=== PATIENT | male | born 1955 | race Caucasian/White ===

== ENCOUNTER → 2020-06-28 09:46 | Outpatient (BNVA) | payer MEDICARE, MEDICAID, SELFPAY | PROVIDERS: Family Provider Family Medicine; PCP Family Medicine; Visit Provider Family Medicine | DX: F41.1 Generalized anxiety disorder (principal); Z13.6 Encounter for screening for cardiovascular disorders; R35.1 Nocturia; R03.0 Elevated blood-pressure reading, without diagnosis of hypertension; F17.219 Nicotine dependence, cigarettes, with unspecified nicotine-induced disorders | CPT/HCPCS: 80053; 80061; 84153; 85025 ==

== ENCOUNTER 2020-07-06 08:17 | Emergency (ER) | payer MEDICARE, MEDICAID, SELFPAY ==
[2020-07-06 08:22] VITALS: BMI 31.4
[2020-07-06 08:25] VITALS: BP 162/110; PULSE 89; RESP 18; TEMP 36.8; O2SAT 96
--- NOTE | 2020-07-06 08:41 | W.ED.PSYCH ---
HPI - Psych General: Chief Complaint: Psychiatric Symptoms Stated Complaint: SI Time Seen by Provider: 07/06/20 08:24 History of Present Illness: HPI Narrative: Patient presents here today with a history of generalized anxiety disorder and has been feeling suicidal for over the last year and finally reached to the point where he is reaching out for help. Does have a appointment scheduled with mental health but he feels like his not soon enough and he just wants to today he started a multiple ways to hurt himself but he is not ready to act upon those. He just feels like the world is caving in on him and he has no reason to live. Just recently started on medications and not take them regularly but he said they are not helping MD complaint: suicidal ideation and feels depressed Onset (ago): year(s) Duration: constant and getting worse History of same: Yes Relieving factors: none Context: new medication(s) Associated psychiatric symptoms: depression and suicidal ideation Associated symptoms: Reports no associated symptoms, depression and suicidal ideation Treatments prior to arrival: none If self harm: admits thoughts of self harm Review of Systems Const: Denies: fever(s), chills or body aches Eyes: Denies: change in vision or blurry vision ENMT: Denies: throat pain or nasal congestion Card: Denies: chest pain or dyspnea on exertion Resp: Denies: dyspnea, productive cough or non-productive cough GI: Denies: abdominal pain, nausea or vomiting : Denies: difficulty urinating Musc: Denies: extremity pain Skin/Breast: Denies: rash Neuro: Denies: headache(s) Psych: Reports: anxiety, depression and suicidal ideation Naveen/Lymph: Denies: easy bruising PFS ED PFSH: Medical History (Updated 06/28/20 @ 10:01 by Megan Tomas DO) MYRTLE (generalized anxiety disorder) Surgical History History of cholecystectomy Family History Other Alcohol abuse Social History Smoking and tobacco status: current every day smoker cigarettes Packs smoked per day: 1 Alcohol intake: former Former alcohol use details: 2019 Physical Exam Const: COMMON NORMALS: no acute distress, average body habitus and patient oriented x3 HENMT: COMMON NORMALS: normocephalic HEAD & SCALP: normal to inspection and normocephalic FACE & SINUS: normal facial exam Eye: COMMON NORMALS: conjunctivae normal GENERAL EYE: appearance normal, both eyes and all related structures CONJUNCTIVA: Yes conjunctivae normal Neck/C-Spine: COMMON NORMALS: no JVD Chest: COMMONS NORMALS: normal inspection of the chest Resp: COMMON NORMALS: normal respiratory effort and clear to auscultation bilaterally AUSCULTATION: clear to auscultation bilaterally Cardio: COMMON NORMALS: no JVD, regular rate and regular rhythm RATE: regular rate RHYTHM: regular rhythm GI: COMMON NORMALS: Normal to inspection, nondistended, normoactive bowel sounds present Extremity: COMMON NORMALS: normal to inspection and full ROM Neuro: COMMON NORMALS: patient oriented x3 MDM - Psych MDM Narrative: Medical decision making narrative: I spoke with Dr. Hui who agrees accept the patient at [facility] Lab Data: Labs: Lab Results 07/06/20 07/06/20 07/06/20 Range/Units 08:50 08:50 09:08 WBC 12.7 H (4.0-10.0) 10^3/ uL RBC 5.59 H (4.1-5.3) 10^6/u L Hgb 17.9 H (11.7-16.6) g/dL Hct 51.2 (42.0-52.0) % MCV 91.6 (80-94) fL MCH 32.0 (28.0-34.0) pg MCHC 35.0 (30.0-36.0) g/dL RDW 12.7 (12.1-15.1) % Plt Count 284 (130-400) 10^3/c mm MPV 10.8 H (7.4-10.4) fL Neut % (Auto) 76.9 % Lymph % (Auto) 16.8 % Alger % (Auto) 5.0 % Eos % (Auto) 0.6 % Baso % (Auto) 0.3 % Neut # (Auto) 9.73 H (1.8-7.7) 10^3/u L Lymph # (Auto) 2.1 (0.8-4.8) 10^3/u L Alger # (Auto) 0.6 (0.2-0.9) 10^3/u L Eos # (Auto) 0.1 (0.0-0.8) 10^3/u L Baso # (Auto) 0.0 (0.0-0.1) 10^3/u L Nucleated RBC % (a uto) 0 % Nucleated RBCs # 0.0 /100WBC Sodium (136-145) mmol/L Potassium (3.5-5.1) mmol/L Chloride (98-107) mmol/L Carbon Dioxide (22-29) mmol/L Anion Gap (5-19) BUN (8-23) mg/dL Creatinine (0.7-1.2) mg/dL GFR Calculation (90-130) mL/min Glucose (65-115) mg/dL Calculated Osmolal ity (285-295) mOsm/k g Calcium (8.5-10.5) mg/dL Urine Color Yellow (Yellow) Urine Appearance Clear (CLEAR) Urine pH 5.0 (5-7) Ur Specific Gravit y 1.020 (1.005-1.030) Urine Protein Neg (Negative) Urine Glucose (UA) Norm (Normal) Urine Ketones Negative (Negative) Urine Blood Neg (Negative) Urine Nitrate Negative (Negative) Urine Bilirubin Neg (NEGATIVE) Urine Urobilinogen Norm (Negative) mg/dL Ur Leukocyte Arielle ase Negative (Negative) Salicylates (3-10) mg/dL Urine Opiates Scre en Negative (Negative) ng/mL Acetaminophen (10-30) ug/mL Ur Barbiturates Sc reen Negative (Negative) ng/mL Ur Phencyclidine S crn Negative (Negative) ng/mL Ur Amphetamines Sc reen Negative (Negative) ng/mL U Benzodiazepines Scrn Negative (Negative) ng/mL Urine Cocaine Scre en Negative (Negative) ng/mL U Marijuana (THC) Screen Negative (Negative) ng/mL 07/06/20 Range/Units 09:08 WBC (4.0-10.0) 10^3/ uL RBC (4.1-5.3) 10^6/u L Hgb (11.7-16.6) g/dL Hct (42.0-52.0) % MCV (80-94) fL MCH (28.0-34.0) pg MCHC (30.0-36.0) g/dL RDW (12.1-15.1) % Plt Count (130-400) 10^3/c mm MPV (7.4-10.4) fL Neut % (Auto) % Lymph % (Auto) % Alger % (Auto) % Eos % (Auto) % Baso % (Auto) % Neut # (Auto) (1.8-7.7) 10^3/u L Lymph # (Auto) (0.8-4.8) 10^3/u L Alger # (Auto) (0.2-0.9) 10^3/u L Eos # (Auto) (0.0-0.8) 10^3/u L Baso # (Auto) (0.0-0.1) 10^3/u L Nucleated RBC % (a uto) % Nucleated RBCs # /100WBC Sodium 136 (136-145) mmol/L Potassium 3.8 (3.5-5.1) mmol/L Chloride 104 (98-107) mmol/L Carbon Dioxide 23 (22-29) mmol/L Anion Gap 12.8 (5-19) BUN 12 (8-23) mg/dL Creatinine 1.1 (0.7-1.2) mg/dL GFR Calculation 67.0 L (90-130) mL/min Glucose 112 (65-115) mg/dL Calculated Osmolal ity 279 L (285-295) mOsm/k g Calcium 9.4 (8.5-10.5) mg/dL Urine Color (Yellow) Urine Appearance (CLEAR) Urine pH (5-7) Ur Specific Gravit y (1.005-1.030) Urine Protein (Negative) Urine Glucose (UA) (Normal) Urine Ketones (Negative) Urine Blood (Negative) Urine Nitrate (Negative) Urine Bilirubin (NEGATIVE) Urine Urobilinogen (Negative) mg/dL Ur Leukocyte Arielle ase (Negative) Salicylates < 0.3 L (3-10) mg/dL Urine Opiates Scre en (Negative) ng/mL Acetaminophen < 5.0 L (10-30) ug/mL Ur Barbiturates Sc reen (Negative) ng/mL Ur Phencyclidine S crn (Negative) ng/mL Ur Amphetamines Sc reen (Negative) ng/mL U Benzodiazepines Scrn (Negative) ng/mL Urine Cocaine Scre en (Negative) ng/mL U Marijuana (THC) Screen (Negative) ng/mL Discharge Plan Discharge Prescriptions: No Action citalopram 40 mg tablet 40 mg PO DAILY Qty: 30 RF: 0 Benadryl 25 mg Capsule 50 mg PO BEDTIME PRN (Reason: Sleep) RF: 0 clonazepam 1 mg tablet 1 mg PO BEDTIME PRN (Reason: insomnia) RF: 0 Coding Level of Care Code ED Capacity Management Specialist for Chg Fwd Exam Comprehensive
[2020-07-06] MEDS: LORazepam 1 mg Tablet PO (09:00)
[2020-07-06] MEDS: lisinopril 10 mg Tablet PO (09:00)
[2020-07-06 09:16] LABS: Basophils % 0.3 %; Eosinophils # 0.1 10^3/uL (0.0-0.8); Eosinophils % 0.6 %; Hematocrit 51.2 % (42.0-52.0); Hemoglobin 17.9 g/dL (11.7-16.6); Lymphocytes # 2.1 10^3/uL (0.8-4.8); Lymphocytes % 16.8 %; Mean Corpuscular Volume 91.6 fL (80-94); Mean Platelet Volume 10.8 fL (7.4-10.4); Monocytes # 0.6 10^3/uL (0.2-0.9); Neutrophils # 9.73 10^3/uL (1.8-7.7); Neutrophils % 76.9 %; Nucleated Red Blood Cells % 0 %; Platelet Count 284 10^3/cmm (130-400); Red Blood Count 5.59 10^6/uL (4.1-5.3); Red Cell Distribution Width 12.7 % (12.1-15.1); White Blood Count 12.7 10^3/uL (4.0-10.0)
[2020-07-06 09:17] LABS: Add Urine Microscopic? NO
[2020-07-06 09:23] LABS: Bilirubin Urine Neg (NEGATIVE); Blood Urine Neg (Negative); Glucose Urine UA Norm (Normal); Ketones Urine Negative (Negative); Leukocyte Esterase Urine Negative (Negative); Nitrate Urine Negative (Negative); Protein Urine Neg (Negative); Urine Appearance Clear (CLEAR); Urine Color Yellow (Yellow); Urobilinogen Urine Norm (Negative)
[2020-07-06 09:31] LABS: Amphetamines Screen Urine Negative (Negative); Barbiturates Screen Urine Negative (Negative); Benzodiazepines Screen Urine Negative (Negative); Cocaine Screen Urine Negative (Negative); Opiate Screen Urine Negative (Negative); PCP Screen Urine Negative (Negative); THC Screen Urine Negative (Negative)
[2020-07-06 09:40] LABS: Anion Gap 12.8 (5-19); Blood Urea Nitrogen 12 mg/dL (8-23); Calcium 9.4 mg/dL (8.5-10.5); Carbon Dioxide 23 mmol/L (22-29); Chloride 104 mmol/L (98-107); Glucose 112 mg/dL (65-115); Osmolality Calculated 279 mOsm/kg (285-295); Potassium 3.8 mmol/L (3.5-5.1); Sodium 136 mmol/L (136-145)
[2020-07-06 09:41] LABS: Acetaminophen < 5.0 ug/mL (10-30); Salicylate < 0.3 mg/dL (3-10)
[2020-07-06 13:09] VITALS: RESP 18
--- NOTE | 2020-07-06 13:59 | PC.NURSE ---
Alis called to talk to patient directly at 1400
[2020-07-06 15:03] VITALS: BP 114/75; PULSE 81; RESP 18; O2SAT 95
[2020-07-06] MEDS: LORazepam 1 mg Tablet 0.5 MG PO (15:40)
[2020-07-06] MEDS: diphenoxylate/atropine Tablet 1 TAB PO (15:40)
== END 2020-07-06 15:45 ==
PROVIDERS: Emergency Provider Nurse Practitioner Family; PCP Family Medicine
DX: F17.210 Nicotine dependence, cigarettes, uncomplicated (principal)
CPT/HCPCS: 12345; 36415; 80048; 80306; 80307; 81003; 85025; 99284; 99285

== ENCOUNTER → 2020-08-05 09:45 | Outpatient (BNVA) | payer MEDICARE, MEDICAID, SELFPAY | PROVIDERS: PCP Family Medicine; Visit Provider Psychiatry & Neurology Psychiatry | DX: F41.1 Generalized anxiety disorder (principal); F42.2 Mixed obsessional thoughts and acts; F33.0 Major depressive disorder, recurrent, mild | CPT/HCPCS: 90792 ==

== ENCOUNTER → 2020-08-19 08:29 | Outpatient (BNVA) | payer MEDICARE, MEDICAID, SELFPAY | PROVIDERS: PCP Family Medicine; Visit Provider Psychiatry & Neurology Psychiatry | DX: F33.0 Major depressive disorder, recurrent, mild (principal); F42.2 Mixed obsessional thoughts and acts; F41.1 Generalized anxiety disorder | CPT/HCPCS: 99214 ==

== ENCOUNTER → 2020-08-30 08:38 | Outpatient (BNVA) | payer MEDICARE, MEDICAID, SELFPAY | PROVIDERS: PCP Family Medicine; Visit Provider Psychiatry & Neurology Psychiatry | DX: F33.0 Major depressive disorder, recurrent, mild (principal); F42.2 Mixed obsessional thoughts and acts; F41.1 Generalized anxiety disorder | CPT/HCPCS: 99213 ==

== ENCOUNTER → 2020-10-10 11:30 | Outpatient (BNVA) | payer MEDICARE, MEDICAID, SELFPAY | PROVIDERS: PCP Family Medicine; Visit Provider Psychiatry & Neurology Psychiatry | DX: F33.0 Major depressive disorder, recurrent, mild (principal); F42.2 Mixed obsessional thoughts and acts; F41.1 Generalized anxiety disorder; G31.84 Mild cognitive impairment of uncertain or unknown etiology | CPT/HCPCS: 99214 ==

== ENCOUNTER → 2020-12-06 08:02 | Outpatient (BNVA) | payer MEDICARE, MEDICAID, SELFPAY | PROVIDERS: PCP Family Medicine; Visit Provider Psychiatry & Neurology Psychiatry | DX: F33.0 Major depressive disorder, recurrent, mild (principal); F42.2 Mixed obsessional thoughts and acts; F41.1 Generalized anxiety disorder; G31.84 Mild cognitive impairment of uncertain or unknown etiology | CPT/HCPCS: 99214 ==

== ENCOUNTER → 2021-04-11 11:06 | Outpatient (BNVA) | payer MEDICARE, MEDICAID, SELFPAY | PROVIDERS: PCP Family Medicine; Visit Provider Psychiatry & Neurology Psychiatry | DX: F41.1 Generalized anxiety disorder (principal); F33.0 Major depressive disorder, recurrent, mild; F42.2 Mixed obsessional thoughts and acts; G31.84 Mild cognitive impairment of uncertain or unknown etiology | CPT/HCPCS: 99214 ==

== ENCOUNTER → 2021-05-25 09:05 | Outpatient (BNVA) | payer MEDICARE, MEDICAID, SELFPAY | PROVIDERS: PCP Family Medicine; Visit Provider Family Medicine | DX: I10 Essential (primary) hypertension (principal); R35.1 Nocturia | CPT/HCPCS: 80053; 80061; 82043; 84153; 85025 ==

== ENCOUNTER → 2021-06-02 10:13 | Outpatient (BNVA) | payer MEDICARE, MEDICAID, SELFPAY | PROVIDERS: PCP Family Medicine; Visit Provider Psychiatry & Neurology Psychiatry | DX: F41.1 Generalized anxiety disorder (principal); F33.0 Major depressive disorder, recurrent, mild; F42.2 Mixed obsessional thoughts and acts; G31.84 Mild cognitive impairment of uncertain or unknown etiology | CPT/HCPCS: 99214 ==

== ENCOUNTER → 2021-08-31 10:21 | Outpatient (BNVA) | payer MEDICARE, MEDICAID, SELFPAY | PROVIDERS: PCP Family Medicine; Visit Provider Psychiatry & Neurology Psychiatry | DX: F41.1 Generalized anxiety disorder (principal); F33.0 Major depressive disorder, recurrent, mild; F42.2 Mixed obsessional thoughts and acts; G31.84 Mild cognitive impairment of uncertain or unknown etiology | CPT/HCPCS: 99214 ==

== ENCOUNTER 2021-11-23 12:30 | Emergency (ER) | payer MEDICARE, MEDICAID, SELFPAY ==
[2021-11-23 12:41] VITALS: BP 183/79; PULSE 72; RESP 16; TEMP 36.7; O2SAT 95
[2021-11-23 13:26] LABS: Add Urine Microscopic? NO; Charge for UA Resulting for Rev
[2021-11-23 13:31] LABS: Bilirubin Urine Neg (Negative); Blood Urine Neg (Negative); Glucose Urine UA Norm (Normal); Ketones Urine Negative (Negative); Leukocyte Esterase Urine Negative (Negative); Nitrate Urine Negative (Negative); Protein Urine Neg (Negative); Specific Gravity, Urine 1.015 (1.005-1.030); Urine Appearance Clear (CLEAR); Urine Color Yellow (Yellow); Urobilinogen Urine Norm (Negative); pH Urine 5 (5-7)
[2021-11-23 13:38] LABS: Basophils % 0.2 %; Eosinophils # 0.2 10^3/uL (0.0-0.8); Eosinophils % 2.2 %; Hematocrit 47.2 % (42.0-52.0); Hemoglobin 15.9 g/dL (11.7-16.6); Lymphocytes # 2.3 10^3/uL (0.8-4.8); Mean Corpuscular HGB Conc 33.7 g/dL (30.0-36.0); Mean Corpuscular Hemoglobin 31.1 pg (28.0-34.0); Mean Corpuscular Volume 92.4 fl (80-94); Mean Platelet Volume 10.9 fL (7.4-10.4); Monocytes # 0.6 10^3/uL (0.2-0.9); Monocytes % 7.3 %; Neutrophils # 5.05 10^3/uL (1.8-7.7); Neutrophils % 62.2 %; Nucleated Red Blood Cells % 0 %; Platelet Count 262 10^3/cmm (130-400); Red Blood Count 5.11 10^6/uL (4.1-5.3); White Blood Count 8.1 10^3/uL (4.0-10.0)
--- NOTE | 2021-11-23 14:07 | CT_ITS ---
WS: [id number] CT HEAD TECHNIQUE: Noncontrast CT of the head obtained from the skullbase to the vertex. CLINICAL INFORMATION: confusion COMPARISON: None. DLP: 1017.[address] scans at [facility] use at least one of these dose optimization techniques: automated e xposure control; mA and/or kV adjustment per patient size (includes targeted exams where dose is matc hed to clinical indication); or iterative reconstruction. FINDINGS: No evidence of intracranial hemorrhage or mass effect. Ventricular system and basal cisterns are padilla nt. Moderate small vessel changes with moderate parenchymal volume loss. Encephalomalacia left fronta l lobe likely due to prior infarct or trauma. No extra-axial fluid collections. No evidence of mass o r mass effect. Retention cyst right maxillary sinus. Mastoid air cells are well aerated. Intracranial vascular calci fication. CT/CT head wo con* [id number] IMPRESSION: 1. No evidence of intracranial hemorrhage or mass effect. 2. Encephalomalacia in the left frontal lobe likely due to prior trauma or inf arct. 3. Moderate small vessel changes with moderate parenchymal volume loss. 4. No acute intracranial findings.
--- NOTE | 2021-11-23 14:08 | ECG_ITS ---
[facility] Test Date: 2021-11-23 Pat Name: Shon Scanlon Department: Room: Gender: Male [employer]: : [id number] Requested By: Zohreh Hernandez Order Number: [id number] Johana MD: Yan Trotter M.D. Measurements Intervals Douglas Rate: 66 P: 39 CT: 156 QRS: -2 QRSD: 101 T: 40 QT: 378 QTc: 397 Interpretive Statements SINUS RHYTHM SEPTAL MYOCARDIAL INFARCTION , PROBABLY OLD [40+ ms Q WAVE IN V1/V2] No previous ECG available for comparison Electronically Signed On 11-23-2021 21:59:38 REHABILITATION PSYCHOLOGIST by Yan Trotter M.D. [email or web address] [email or web address] Design [email or web address]/[id number] f
--- NOTE | 2021-11-23 14:16 | ED_ITS ---
HPI - General Adult General: Chief complaint: General Medical Stated complaint: MEDICATION RXN, WEAKNESS Time Seen by Provider: 11/23/21 12:47 History of Present Illness: HPI narrative: Patient is a 66-year-old male with a history of severe anxiety requiring benzodiazepine presenting to the emergency room with complaints of increased confusion, mild slurring of speech, lightheadedness since Saturday. Patient tells me that he ran out of Ativan on Saturday and started taking diazepam since then. Since starting taking the diazepam, patient says that he has had gait instability asked to grab onto things to walk at home.?, Patient noticed mild intermittent slurring of speech. Denies any focal weakness, double vision, diplopia, facial droop, aphasia or difficulty with speech. Denies any associate chest pain, shortness breath, palpitation, lightheadedness. Onset: 3 days ago Duration:3 days Location:home Severity:mild Review of Systems Narrative: Constitutional: No fever, no chills. HEENT: No vision changes CV: No chest pain, no palpitations PULM: no cough, no dyspnea. GI: No abdominal pain, no N/V/D. : No dysuria MSKEL: No muscle pain SKIN: No new rashes, no lesions. NEURO: No headache, no focal weakness. +confusion/light-headedness/gait instability HEME: No visible bruises PSYCH: Normal mood PFSH ED PFSH: Medical History (Updated 11/23/21 @ 14:14 by Zohreh Hernandez MD) MYRTLE (generalized anxiety disorder) Major depressive disorder Mild cognitive impairment OCD (obsessive compulsive disorder) Psychiatric care Surgical History History of cholecystectomy Family History Other Alcohol abuse Social History Smoking and tobacco status: current every day smoker cigarettes Packs smoked per day: 0.1 Years cigarettes smoked: 50 Quit status (tobacco): considering quitting Second hand smoke exposure: No Alcohol intake: former Former alcohol use details: QUIT 2020 Current gender identity: Male Physical Exam Narrative: EXAM NARRATIVE: Head: Atraumatic Eyes: PERRL, conjunctiva without injection ENT: Mucous membrane moist NECK: Supple, ROM intact LUNGS: LCTAB, no crackles/rhonchi CV: RRR ABDOMEN: Soft, nontender in all quadrants EXTREMITY: Normal ROM SKIN: No rash or erythema NEURO: Mental status? Awake, alert, and oriented to self, year, month, location, and situation.? Following simple axial and appendicular commands.? Has appropriate fund of knowledge, comprehension, and insight.? Able to recall and understands pertinent aspects of medical history and current treatment status.? ? Language? Speech is fluent without word-finding difficulties.? Intact naming, expression, unit receptionist, and repetition.? ? Cranial nerves? 2,3,4,6: PERRL, EOMI with no nystagmus. 5: Intact sensation to light touch, symmetric? 7: Smile symmetrical, no facial droop.? 8: Hearing grossly intact.? 9,10: Normal palate movement.? 11: Normal strength in trapezius bilaterally 12: Tongue protrudes midline.? ? Motor examination? Normal bulk & tone. Strength as follows (R/L): Delts (5/5), Biceps (5/5), Triceps (5/5), Wrist ext (5/5), hip flexors (5/5), plantarflexors (5/5), dorsiflexors (5/5). ? Sensation? Light Touch: Grossly intact and equal in upper and lower extremities bilaterally? Romberg: Negative.? Distal joint position sense intact ? Coordination? [id number]-finger movements intact without dysmetria or past-pointing.? Rapid fingertaps: preserved amplitude without decriment.? No tremor, myoclonus or truncal ataxia.? ? Gait/stance? Steady, normal narrow base gait with appropriate arm swing and turning.? Tandem gait without hesitation or loss of balance. PSYCH: Normal mood and affect Course Vital Signs: Vital signs: Vital Signs Temperature 98.1 F 11/23/21 12:41 Pulse Rate 67 11/23/21 17:38 Respiratory Rate 18 11/23/21 17:38 Blood Pressure 164/91 11/23/21 17:38 Pulse Oximetry 97 11/23/21 17:38 MDM - General Adult MDM Narrative: Medical decision making narrative: Patient is a 58-year-old male presenting to emergency room with complaints of lightheadedness, mild intermittent slurring speech, and gait instability after switching his medicine from Ativan to diazepam. On exam, patient is hemodynamically stable. Neuro exam is intact. Work-up, CBC, CMP, lipase, troponin, UA, CT Intervention observation, IVF On reassessment at 4:17 PM, patient continues to be neurologically intact. No signs of slurring of speech. Gait appears to be stable. At present time, I have discussed case with [facility] neurologist Dr Quiñonez who agrees that this is unlikely to be a stroke or TIA and thinks that likely medication side-effect. Dr. Quiñonez recommended close follow-up with our primary care provider for blood pressure adjustment as well as close follow-up with our neurologist for further evaluation of patient's neurological symptoms if they do not improve. Findings of L frontal lobe changes discussed with Dr. Quiñonez who agrees with close follow-up our neurologist. I do not suspect ACS since patient's troponin within normal limit EKG is nonischemic. Also did not have any symptoms of chest pain shortness of breath. I have given patient follow up with our hospice case manager to be seen by our utpatient neurologist Dr. Green. Patient aware of a call from our hospice case manager to schedule for appointment(s) and verbalizes understanding of the importance of following up. I have given patient strict return precaution for any signs of focal weakness, dysarthria, double vision, acute vision loss, slurring of speech, facial droop these may be signs of stroke. Patient is given strict return insturctions within 3 hours of onset of symptoms. Patient verbalizes everything discussed today. Disposition: Discharge. Patient counseled regarding diagnostic impression, treatment plan. Patient given ED strict return precautions to return for continuation, worsening, or development of new symptoms. Instructed to f/u w/ PCP regarding symptoms today. Patient verbalized understanding. Lab Data: Labs: Lab Results 11/23/21 11/23/21 11/23/21 13:18 13:32 13:32 WBC 8.1 10^3/uL 10^3/ uL (4.0-10.0) RBC 5.11 10^6/uL 10^6 /uL (4.1-5.3) Hgb 15.9 g/dL g/dL (11.7-16.6) Hct 47.2 % % (42.0-52.0) MCV 92.4 fl fl (80-94) MCH 31.1 pg pg (28.0-34.0) MCHC 33.7 g/dL g/dL (30.0-36.0) RDW 14.0 % % (12.1-15.1) Plt Count 262 10^3/cmm 10^3 /cmm (130-400) MPV 10.9 fL H fL (7.4-10.4) Neut % (Auto) 62.2 % % Lymph % (Auto) 28.0 % % Maury % (Auto) 7.3 % % Eos % (Auto) 2.2 % % Baso % (Auto) 0.2 % % Neut # (Auto) 5.05 10^3/uL 10^3 /uL (1.8-7.7) Lymph # (Auto) 2.3 10^3/uL 10^3/ uL (0.8-4.8) Maury # (Auto) 0.6 10^3/uL 10^3/ uL (0.2-0.9) Eos # (Auto) 0.2 10^3/uL 10^3/ uL (0.0-0.8) Baso # (Auto) 0.0 10^3/uL 10^3/ uL (0.0-0.1) Nucleated RBC % (a uto) 0 % % Nucleated RBCs # 0.0 /100WBC /100W BC Sodium Cancelled Potassium Cancelled Chloride Cancelled Carbon Dioxide Cancelled Anion Gap Cancelled BUN Cancelled Creatinine Cancelled GFR Calculation Cancelled Glucose Cancelled Calculated Osmolal ity Cancelled Calcium Cancelled Total Bilirubin AST ALT Alkaline Phosphata se Troponin T Baselin e Troponin T 120 Min douglas Delta Troponin T Total Protein Albumin Globulin Lipase Urine Color Yellow (Yellow) Urine Appearance Clear (CLEAR) Urine pH 5 (5-7) Ur Specific Gravit y 1.015 (1.005-1.030) Urine Protein Neg (Negative) Urine Glucose (UA) Norm (Normal) Urine Ketones Negative (Negative) Urine Blood Neg (Negative) Urine Nitrate Negative (Negative) Urine Bilirubin Neg (Negative) Urine Urobilinogen Norm mg/dL mg/dL (Negative) Ur Leukocyte Arielle ase Negative (Negative) 11/23/21 11/23/21 11/23/21 13:32 13:32 15:31 WBC RBC Hgb Hct MCV MCH MCHC RDW Plt Count MPV Neut % (Auto) Lymph % (Auto) Maury % (Auto) Eos % (Auto) Baso % (Auto) Neut # (Auto) Lymph # (Auto) Maury # (Auto) Eos # (Auto) Baso # (Auto) Nucleated RBC % (a uto) Nucleated RBCs # Sodium 140 mmol/L mmol/L (136-145) Potassium 4.7 mmol/L mmol/L (3.5-5.1) Chloride 106 mmol/L mmol/L (98-107) Carbon Dioxide 26 mmol/L mmol/L (22-29) Anion Gap 12.7 (5-19) BUN 11 mg/dL mg/dL (8-23) Creatinine 1.0 mg/dL mg/dL (0.7-1.2) GFR Calculation 74.3 mL/min L mL/ min (90-130) Glucose 88 mg/dL mg/dL (65-115) Calculated Osmolal ity 289 mOsm/kg mOsm/ kg (285-295) Calcium 8.8 mg/dL mg/dL (8.5-10.5) Total Bilirubin 0.3 mg/dL mg/dL (0.15-1.2) AST 15 U/L U/L (0-40) ALT 24 U/L U/L (0-41) Alkaline Phosphata se 70 IU/L IU/L (40-130) Troponin T Baselin e 13 ng/L ng/L (0-15) Troponin T 120 Min douglas 12.73 ng/L ng/L (0-15) Delta Troponin T -0.27 ABS# L ABS# (0-10) Total Protein 6.9 g/dL g/dL (6.6-8.7) Albumin 4.2 g/dL g/dL (3.5-5.2) Globulin 2.7 g/dL g/dL (1.3-4.6) Lipase 112 U/L H U/L (13-60) Urine Color Urine Appearance Urine pH Ur Specific Gravit y Urine Protein Urine Glucose (UA) Urine Ketones Urine Blood Urine Nitrate Urine Bilirubin Urine Urobilinogen Ur Leukocyte Arielle ase Imaging Data^: Other Imaging: Radiologist's impression: [employer] [address] [id number] Scan ReportSigned Patient: Shon Scanlon #: [id number]: 1955cct#:[id number]/Sex: 66 / MADM Date: 11/23/21Loc: ERRoom/Bed:Attending Dr: Ordering Provider/Ordering MD: Zohreh Hernandez MD Date of Service: 11/23/21 Procedure(s): CT head wo con* [id number] Accession Number(s): [id number] Report Number: [id number] WS: [id number] CT HEAD TECHNIQUE: Noncontrast CT of the head obtained from the skullbase to the vertex. CLINICAL INFORMATION: confusion COMPARISON: None. DLP: 1017.[address] scans at [facility] use at least one of these dose optimization techniques: automated exposure control; mA and/or kV adjustment per patient size (includes targeted exams where dose is matched to clinical indication); or iterative reconstruction. FINDINGS: No evidence of intracranial hemorrhage or mass effect. Ventricular system and basal cisterns are patent. Moderate small vessel changes with moderate parenchymal volume loss. Encephalomalacia left frontal lobe likely due to prior infarct or trauma. No extra-axial fluid collections. No evidence of mass or mass effect. Retention cyst right maxillary sinus. Mastoid air cells are well aerated. Intracranial vascular calcification. CT/CT head wo con* [id number] IMPRESSION: 1. No evidence of intracranial hemorrhage or mass effect. 2. Encephalomalacia in the left frontal lobe likely due to prior trauma or infarct. 3. Moderate small vessel changes with moderate parenchymal volume loss. 4. No acute intracranial findings. Dictated By:Anson White MDSigned By:Anson White MDSigned Date/Time:11/23/211457DD/ 54 Discharge Plan Discharge Patient Disposition: Home Clinical Impression: Confusion, Light headedness Condition: Stable Prescriptions: Discontinued diazepam 10 mg tablet 10 mg PO TID PRN (Reason: anxiety or sleep) 1 Days Qty: 90 RF: 3 No Action melatonin 10 mg capsule 10 mg PO BEDTIME RF: 0 aspirin 325 mg tablet 325 mg PO EVERY OTHER DAY RF: 0 lorazepam 0.5 mg tablet See Rx Instructions .ROUTE .COMPLEX RF: 0 lisinopril 10 mg tablet 10 mg PO QAM RF: 0 Discharge Orders: Discharge ED (Routine); Ordered 11/23/21 Ordered By: Zohreh Hernandez Referrals: Megan Tomas DO [Primary Care Provider] - Discharge Diet: Advance as tolerated Discharge Activity: Resume usual activity Patient Instructions: Near Syncope (ED) Activity Restrictions/Additional Instructions: Our hospice case manager will have you follow-up with Dr. Green in the next few days. You would be expected to have a phone call with our hospice case manager who will put you on the schedule. Come back to the emergency room if any weakness in your arms, for slurring of speech, double vision, blindness, difficulty speaking, worsening difficulties, or any new concerning complaints. Coding Level of Care Code ED Supervisor Body Assembly for Gary Elizabeth
[2021-11-23 14:28] LABS: Troponin(5th) Baseline 13 ng/L (0-15)
[2021-11-23 14:31] LABS: Anion Gap 12.7 (5-19); Blood Urea Nitrogen 11 mg/dL (8-23); Calcium 8.8 mg/dL (8.5-10.5); Carbon Dioxide 26 mmol/L (22-29); Chloride 106 mmol/L (98-107); Glomerular Filtration Rate 74.3 mL/min (90-130); Glucose 88 mg/dL (65-115); Osmolality Calculated 289 mOsm/kg (285-295); Potassium 4.7 mmol/L (3.5-5.1); Sodium 140 mmol/L (136-145)
[2021-11-23 14:44] LABS: Alanine Aminotransferase 24 U/L (0-41); Albumin Level 4.2 g/dL (3.5-5.2); Alkaline Phosphatase 70 IU/L (40-130); Aspartate Amino Transferase 15 U/L (0-40); Globulin 2.7 g/dL (1.3-4.6); Lipase 112 U/L (13-60); Total Bilirubin 0.3 mg/dL (0.15-1.2); Total Protein 6.9 g/dL (6.6-8.7)
[2021-11-23 15:56] LABS: Troponin 5 2HR 12.73 ng/L (0-15)
[2021-11-23 15:58] LABS: Troponin 5 2HR Delta -0.27 ABS# (0-10)
[2021-11-23 17:38] VITALS: BP 164/91; PULSE 67; RESP 18; O2SAT 97
--- NOTE | 2021-11-27 11:03 | DCPLANNER ---
Addendum entered by Shaila Lehman 12/06/21 08:05: Clinic contacted caseworker intake, informing caseworker intake that when clinic called patient to schedule a follow up appointment for patient that patient declined appt at this time, due to him feeling better. Original Note: insurance agency manager had message to schedule a follow up appointment for patient with Dr. Green. insurance agency manager emailed patients information to the neurology clinic. Patients information will be printed and reviewed. Clinic will call patient with appointment information.
== END 2021-11-23 17:39 | disposition home or self-care (01) ==
PROVIDERS: Emergency Provider Emergency Medicine; PCP Family Medicine
DX: R41.0 Disorientation, unspecified (principal); R42 Dizziness and giddiness; Z79.82 Long term (current) use of aspirin; F17.210 Nicotine dependence, cigarettes, uncomplicated
CPT/HCPCS: 70450; 80053; 81003; 83690; 84484; 85025; 93005; 99283

== ENCOUNTER → 2021-12-21 07:27 | Outpatient (BNVA) | payer MEDICARE, MEDICAID, SELFPAY | PROVIDERS: PCP Family Medicine; Visit Provider Psychiatry & Neurology Psychiatry | DX: F41.1 Generalized anxiety disorder (principal); F33.0 Major depressive disorder, recurrent, mild; F42.2 Mixed obsessional thoughts and acts; G31.84 Mild cognitive impairment of uncertain or unknown etiology | CPT/HCPCS: 99214 ==

== ENCOUNTER → 2021-12-22 12:08 | Outpatient (BNVA) | payer MEDICARE, MEDICAID, SELFPAY | PROVIDERS: PCP Family Medicine; Visit Provider Family Medicine | DX: I10 Essential (primary) hypertension (principal); R35.1 Nocturia; R23.8 Other skin changes | CPT/HCPCS: 80053; 80061; 82043; 84153; 85025 ==

== ENCOUNTER → 2022-03-20 09:00 | Outpatient (BNVA) | payer MEDICARE, MEDICAID, SELFPAY | PROVIDERS: PCP Family Medicine; Visit Provider Psychiatry & Neurology Psychiatry | DX: F41.1 Generalized anxiety disorder (principal); F33.0 Major depressive disorder, recurrent, mild; F42.2 Mixed obsessional thoughts and acts; G31.84 Mild cognitive impairment of uncertain or unknown etiology | CPT/HCPCS: 99214 ==

== ENCOUNTER → 2022-07-13 11:58 | Outpatient (BNVA) | payer MEDICARE, MEDICAID, SELFPAY | PROVIDERS: PCP Family Medicine; Visit Provider Family Medicine | DX: I10 Essential (primary) hypertension (principal); R35.1 Nocturia; R23.8 Other skin changes; R53.83 Other fatigue; K52.9 Noninfective gastroenteritis and colitis, unspecified | CPT/HCPCS: 80048; 84443 ==

== ENCOUNTER 2022-09-04 03:39 | Inpatient (IN) | payer MEDICARE, MEDICAID, SELFPAY ==
[2022-09-04] VITALS (14 sets, daily range): BP systolic 106–152; BP diastolic 54–77; PULSE 60–82; RESP 17–24; TEMP 35.7–39.3; O2SAT 87–98; BMI 30.8; BMI 30.7
--- NOTE | 2022-09-04 03:40 | W.ED.GENADLT ---
HPI - General Adult General: Chief complaint: General Medical Stated complaint: General Medical Time Seen by Provider: 09/04/22 03:40 History of Present Illness: Mr. Bah is a 66-year-old gentleman with history of hypertension, hyperlipidemia, nicotine dependence, psychiatric illness who presents to the emergency department for generalized illness. He reports approximately 1 week ago gradual onset of generalized malaise, weakness, fevers, chills, cough, shortness of breath. Intensity of symptoms has progressed and worsened to the point of becoming severe today. He was unable to get out of bed. He is now requiring supplemental oxygen and has EMS found him to be hypoxemic. Denies history of oxygen use at baseline. Overall intensity symptoms as mentioned is severe. No other specific changes in health, exacerbating, or alleviating factors identified. Onset (ago): week(s) Severity: severe Exacerbating factors: movement and other Associated symptoms: Reports cough, dyspnea, fevers/chills, malaise and short of breath Review of Systems General: Reports: 10 or more systems reviewed and unremarkable except in HPI and below Const: Reports: malaise Resp: Reports: dyspnea PFSH ED PFSH: Medical History MYRTLE (generalized anxiety disorder) Major depressive disorder Mild cognitive impairment OCD (obsessive compulsive disorder) Psychiatric care Surgical History History of cholecystectomy Family History Other Alcohol abuse Social History Smoking and tobacco status: current every day smoker cigarettes Packs smoked per day: 0.1 Years cigarettes smoked: 50 Quit status (tobacco): considering quitting Second hand smoke exposure: No Alcohol intake: former Former alcohol use details: QUIT 2020 Current gender identity: Male Physical Exam Const: COMMON NORMALS: alert GENERAL APPEARANCE: cooperative, well developed and ill appearing (somewhat) HENMT: COMMON NORMALS: normocephalic and atraumatic HEAD & SCALP: normocephalic and atraumatic THROAT: posterior oropharynx normal Eye: COMMON NORMALS: conjunctivae normal CONJUNCTIVA: Yes conjunctivae normal SCLERA: sclerae normal Neck/C-Spine: COMMON NORMALS: supple GENERAL: Yes trachea midline Resp: EFFORT & INSPECTION: Yes able to speak in complete sentences and Yes tachypneic AUSCULTATION: rhonchi Cardio: COMMON NORMALS: regular rate and regular rhythm RATE: regular rate RHYTHM: regular rhythm GI: COMMON NORMALS: Soft to palpation PALPATION: Yes Soft to palpation and No Tenderness to palpation present (GI) Extremity: GENERAL: Yes normal exam except as noted and No edema Neuro: COMMON NORMALS: moves all extremities SENSORIUM/ORIENTATION: Yes alert and No Orientation impaired Psych: COMMON NORMALS: mental status grossly normal and Normal thought process present THOUGHT PROCESS: Normal thought process present Course ED course: - Patient was seen and evaluated by me at bedside - Patient placed on cardiac monitors, IV access obtained - Initial evaluation notable for exam as above, somewhat ill-appearing. - Labs and xrays personally interpreted by me. EKG notable for sinus rhythm with no evidence of STEMI -Antipyretic given - Labs notable for mild leukopenia. Normal hemoglobin. Metabolic panel without significant derangement with the exception of borderline delta troponin at 2 hours and mild transaminitis. ABG notable for hypoxemia. COVID-positive. - Imaging notable for hazy opacities, no pneumothorax. - Upon serial reexamination after treatment the patient was only mildly improved, still requiring oxygen. - Based on patient history, evaluation, and testing as interpreted the most likely cause of the patient's condition is COVID-19 with acute hypoxic respiratory failure - The results of ED evaluation were discussed with the patient including plan for admission due to requirement for level of care not available if discharged to prevent significant worsening/deterioration. - Admitting service was contacted and Dr Davidson with the hospitalist service agreed to admit the patient - Patient was admitted without further deterioration or significant events. Note: Click bubbles or prepopulated covarrubias in note writing are used for assistance with data collection and billing and are inherently more limited than narrative and other text portions of this note. Please use narrative for additional clinical history and defer to narrative/free test for any case of contradictory information. If information appears in only free text or click bubble it should be considered present or absent as reported. Please contact note sign writer letterer or painter for clarifications of clinical information or contradictory information. MDM is a brief summary, contradictory or erroneous seeming information should be clarified and full note should be reviewed. Vital Signs: Vital signs: Vital Signs Temperature 97.6 F 09/07/22 08:00 Pulse Rate 60 10/14/22 16:36 Respiratory Rate 17 09/07/22 16:36 Blood Pressure 154/67 09/07/22 16:36 Pulse Oximetry 94 09/07/22 16:36 Oxygen Delivery Me thod 09/07/22 15:49 Oxygen Flow Rate 1 09/07/22 08:39 MDM - General Adult Medical Decision Making 66-year-old gentleman presenting with generalized illness found to have COVID-19 with new oxygen requirement. Admitted for further management. Medical Records I reviewed the patient's medical records. Lab Data I reviewed the patient's lab results. : 09/07/22 05:15 09/07/22 05:15 Radiology Impressions Chest X-Ray 09/04/22 03:45 IMPRESSION: Emphysematous change , interstitial prominence, and mild basilar airspace disease. Laboratory Results WBC 3.6 10^3/uL (4.0-10.0) L 09/04/22 03:52 RBC 4.90 10^6/uL (4.1-5.3) 09/04/22 03:52 Hgb 15.5 g/dL (11.7-16.6) 09/04/22 03:52 Hct 46.5 % (42.0-52.0) 09/04/22 03:52 MCV 94.9 fl (80-94) H 09/04/22 03:52 MCH 31.6 pg (28.0-34.0) 09/04/22 03:52 MCHC 33.3 g/dL (30.0-36.0) 09/04/22 03:52 RDW 14.0 % (12.1-15.1) 09/04/22 03:52 Plt Count 147 10^3/cmm (130-400) 09/04/22 03:52 MPV 10.7 fL (7.4-10.4) H 09/04/22 03:52 Neut % (Auto) 64.0 % 09/04/22 03:52 Lymph % (Auto) 22.6 % 09/04/22 03:52 Titus % (Auto) 12.8 % 09/04/22 03:52 Eos % (Auto) 0.0 % 09/04/22 03:52 Baso % (Auto) 0.3 % 09/04/22 03:52 Neut # (Auto) 2.29 10^3/uL (1.8-7.7) 09/04/22 03:52 Lymph # (Auto) 0.8 10^3/uL (0.8-4.8) 09/04/22 03:52 Titus # (Auto) 0.5 10^3/uL (0.2-0.9) 09/04/22 03:52 Eos # (Auto) 0.0 10^3/uL (0.0-0.8) 09/04/22 03:52 Baso # (Auto) 0.0 10^3/uL (0.0-0.1) 09/04/22 03:52 Nucleated RBC % (auto) 0 % 09/04/22 03:52 Nucleated RBCs # 0.0 /100WBC 09/04/22 03:52 Specimen Type Arterial 09/04/22 04:13 Sample Site Radial, left 09/04/22 04:13 ABG pH 7.43 (7.35-7.45) 09/04/22 04:13 ABG pCO2 36.7 mmHg (35-45) 09/04/22 04:13 ABG pO2 57.9 mmHg (80.0-100.0) L 09/04/22 04:13 ABG HCO3 24.1 mmol/L (22-26) 09/04/22 04:13 ABG Base Excess 0.1 mmol/L (-2.0-2.0) 09/04/22 04:13 Edi Test Pos 09/04/22 04:13 Hematocrit 48.6 % (42-52) 09/04/22 04:13 O2 Delivery Device Nc 09/04/22 04:13 O2 Liters/Min 2.0 % 09/04/22 04:13 Capture Manager ID [place] 09/04/22 04:13 Sodium 138 mmol/L (136-145) 09/04/22 03:52 Potassium 3.8 mmol/L (3.5-5.1) 09/04/22 03:52 Chloride 102 mmol/L (98-107) 09/04/22 03:52 Carbon Dioxide 22 mmol/L (22-29) 09/04/22 03:52 Anion Gap 17.8 (5-19) 09/04/22 03:52 BUN 16 mg/dL (8-23) 09/04/22 03:52 Creatinine 1.2 mg/dL (0.7-1.2) 09/04/22 03:52 GFR Calculation 60.2 mL/min (90-130) L 09/04/22 03:52 Glucose 94 mg/dL (65-115) 09/04/22 03:52 Calculated Osmolality 287 mOsm/kg (285-295) 09/04/22 03:52 Lactic Acid 1.8 mmol/L (0.5-2.2) 09/04/22 03:52 Calcium 8.8 mg/dL (8.5-10.5) 09/04/22 03:52 Total Bilirubin 0.4 mg/dL (0.15-1.2) 09/04/22 03:52 AST 78 U/L (0-40) H 09/04/22 03:52 ALT 64 U/L (0-41) H 09/04/22 03:52 Alkaline Phosphatase 54 U/L (40-130) 09/04/22 03:52 Troponin T Baseline 20 ng/L (0-15) H 09/04/22 03:52 Troponin T 120 Minute 26.06 ng/L (0-15) H 09/04/22 05:26 Delta Troponin T 6.06 ABS# (0-10) 09/04/22 05:26 C-Reactive Protein 56.3 mg/L (0.0-4.9) H 09/04/22 03:52 NT-Pro-B Natriuret Pep 104 pg/mL (0-125) 09/04/22 03:52 Total Protein 6.5 g/dL (6.6-8.7) L 09/04/22 03:52 Albumin 3.5 g/dL (3.5-5.2) 09/04/22 03:52 Globulin 3.0 g/dL (1.3-4.6) 09/04/22 03:52 Procalcitonin 0.32 ng/mL (0-0.5) 09/04/22 03:52 Coronavirus 229E (PCR) Not detected (NOT DETECT) 09/04/22 03:52 SARS-CoV-2 (PCR) Detected (NOT DETECT) A 09/04/22 03:52 Discharge Plan Discharge Patient Disposition: Placed in Observation Admit Provider: Cezar Davidson Clinical Impression: Suspected 2019 novel coronavirus infection, Acute respiratory failure with hypoxia, Leukopenia, Transaminitis Discharge Diet: Advance as tolerated Discharge Activity: Increase activity as tolerated Coding Level of Care Code ED Lost Charge Card Clerk for Gary Elizabeth
--- NOTE | 2022-09-04 03:45 | XRR_ITS ---
PROCEDURE INFORMATION: Exam: XR Chest Exam date and time: 09/04/2022 4:23 AM Age: 66 years old Clinical indication: Cough and fever; Patient HX: Cough with fever. General weakness. ; Additional info: SOB TECHNIQUE: Imaging protocol: Radiologic exam of the chest. Views: 1 view. COMPARISON: No relevant prior studies available. FINDINGS: Lungs: Emphysematous change , interstitial prominence, and mild basilar airspace disease. Accessory azygos lobe. Pleural spaces: No pleural effusion. Heart/Mediastinum: No cardiomegaly. Bones/joints: Osteopenia and degenerative change. XR/XR chest 1V portable [id number] IMPRESSION: Emphysematous change , interstitial prominence, and mild basilar airspace disease.
--- NOTE | 2022-09-04 03:51 | ECG_ITS ---
[facility] Test Date: 2022-09-04 Pat Name: Shon Scanlon Department: Room: Gender: Male Homicide Squad Commanding Officer: : 1955 Requested By: Dante Pitts Order Number: [id number] Johana MD: Yan Trotter M.D. Measurements Intervals [place] Rate: 79 P: 46 NC: 143 QRS: -23 QRSD: 98 T: 53 QT: 336 QTc: 386 Interpretive Statements SINUS RHYTHM SEPTAL MYOCARDIAL INFARCTION , PROBABLY OLD [40+ ms Q WAVE IN V1/V2] Compared to ECG 11/23/2021 14:24:54 No significant changes Electronically Signed On 09-05-2022 8:28:47 CDT by Yan Trotter M.D. [email or web address] medical centerMulti-AMP Engineering [facility].MiniBrake/store/OM/[id number]
[2022-09-04] MEDS: acetaminophen 500 mg Tablet 1000 MG PO (04:03)
[2022-09-04 04:05] LABS: Basophils % 0.3 %; Hematocrit 46.5 % (42.0-52.0); Hemoglobin 15.5 g/dL (11.7-16.6); Lymphocytes # 0.8 10^3/uL (0.8-4.8); Lymphocytes % 22.6 %; Mean Corpuscular HGB Conc 33.3 g/dL (30.0-36.0); Mean Corpuscular Hemoglobin 31.6 pg (28.0-34.0); Mean Corpuscular Volume 94.9 fl (80-94); Mean Platelet Volume 10.7 fL (7.4-10.4); Monocytes # 0.5 10^3/uL (0.2-0.9); Monocytes % 12.8 %; Neutrophils # 2.29 10^3/uL (1.8-7.7); Nucleated Red Blood Cells % 0 %; Platelet Count 147 10^3/cmm (130-400); White Blood Count 3.6 10^3/uL (4.0-10.0)
[2022-09-04 04:23] LABS: Lactic Sepsis W/Reflex 1.8 mmol/L (0.5-2.2)
[2022-09-04 04:25] LABS: ABG PCO2 36.7 mmHg (35-45); ABG PH Result 7.43 (7.35-7.45); Arterial Blood Gas Hematocrit 48.6 % (42-52); Base Excess ABG 0.1 mmol/L (-2.0-2.0); Blood Gas Allen Test Pos; Blood Gas Operator Identificat WALCI; Blood Gas Sample Site Radial, left; Blood Gas Sample Type Arterial; HCO3 ABG 24.1 mmol/L (22-26); Oxygen Device NC; PO2 ABG 57.9 mmHg (80.0-100.0)
[2022-09-04 04:26] LABS: Troponin(5th) Baseline 20 ng/L (0-15)
[2022-09-04 04:34] LABS: NT Pro B Type Natriuretic Pept 104 pg/mL (0-125); Procalcitonin 0.32 ng/mL (0-0.5)
[2022-09-04 04:45] LABS: Alanine Aminotransferase 64 U/L (0-41); Albumin Level 3.5 g/dL (3.5-5.2); Alkaline Phosphatase 54 U/L (40-130); Aspartate Amino Transferase 78 U/L (0-40); Blood Urea Nitrogen 16 mg/dL (8-23); C Reactive Protein 56.3 mg/L (0.0-4.9); Calcium 8.8 mg/dL (8.5-10.5); Carbon Dioxide 22 mmol/L (22-29); Chloride 102 mmol/L (98-107); Glomerular Filtration Rate 60.2 mL/min (90-130); Glucose 94 mg/dL (65-115); Osmolality Calculated 287 mOsm/kg (285-295); Sodium 138 mmol/L (136-145); Total Bilirubin 0.4 mg/dL (0.15-1.2); Total Protein 6.5 g/dL (6.6-8.7)
[2022-09-04 04:47] LABS: Anion Gap 17.8 (5-19); Potassium 3.8 mmol/L (3.5-5.1)
--- NOTE | 2022-09-04 05:32 | ECG_ITS ---
[facility] Test Date: 2022-09-04 Pat Name: Shon Scanlon Department: Room: Gender: Male Pneumatic Tester: : 1955 Requested By: Dante Pitts Order Number: [id number] Johana MD: Yan Trotter M.D. Measurements Intervals [place] Rate: 70 P: 34 MD: 146 QRS: -17 QRSD: 96 T: 24 QT: 364 QTc: 395 Interpretive Statements SINUS RHYTHM SEPTAL MYOCARDIAL INFARCTION , OF INDETERMINATE AGE [40+ ms Q WAVE IN V1/V2] Compared to ECG 09/04/2022 04:03:55 No significant changes Electronically Signed On 09-05-2022 8:20:15 CDT by Yan Trotter M.D. [id number]
--- NOTE | 2022-09-04 05:41 | PM.HP ---
Providers/Chief Complaint Primary Care Provider: Megan Tomas DO Chief Complaint: General Medical History of Present Illness Shon Scanlon is a 66 year old male with past medical history of hypertension, mild cognitive impairment, depression, nicotine dependence came in with chief complaint of not feeling well for last 1 week, was complaining of generalized weakness malaise, fever with chills, shortness of breath, cough, which has progressively worsened since then. Upon arrival in the ER he was worked up for above-mentioned complaint: Pertinent imaging studies: X-ray chest: Emphysematous change , interstitial prominence, and mild basilar airspace disease. Pertinent labs: WBC 3.6, H&H:15/45 , PLT: 147 , serum sodium 138, serum potassium 3.8, BUN and serum creatinine 16 and 1.2 , procalcitonin 0.32 COVID PCR positive Review of Systems General: Reports: 10 or more systems reviewed and unremarkable except in HPI and below Const: Reports: fever(s), chills and body aches; Denies: change in appetite or diaphoresis Card: Denies: palpitations, edema, swelling of feet/ankles, dyspnea on exertion, orthopnea or leg pain with exertion Resp: Reports: dyspnea and productive cough; Denies: wheezing or pain on inspiration GI: Denies: abdominal pain, nausea, vomiting, diarrhea or constipation : Denies: flank pain or difficulty urinating Musc: Denies: back pain, extremity pain or extremity swelling Neuro: Denies: headache(s), difficulty walking or confusion Medications/Allergies Home Medications Medication Instructions Recorded Confirmed Last Taken Type aspirin 325 mg tablet 325 mg PO .ON MON,WED,Sat08/05/20 09/04/22 Unknown History alprazolam 1 mg tablet 1 mg PO TID PRN anxiety 30 days 07/24/22 09/04/22 Unknown Rx #90 tabs ascorbic acid (vitamin C) 500 mg 500 mg PO DAILY PRN unknown 09/04/22 09/04/22 Unknown History tablet (Vitamin C) aspirin 81 mg tablet,delayed See Rx Instructions .Route .COMPLEX 09/04/22 09/04/22 Unknown History release cholecalciferol (vitamin D3) 25 25 mcg PO DAILY PRN unknown 09/04/22 09/04/22 Unknown History mcg (1,000 unit) tablet (Vitamin D3) lisinopril 10 mg tablet 10 mg PO QAM 09/04/22 09/04/22 Unknown History zinc acetate 50 mg (zinc) capsule 50 mg PO DAILY PRN unknown 09/04/22 09/04/22 Unknown History Allergies Allergy/AdvReac Type Severity Reaction Status Date / Time No Known Allergies Allergy Verified 09/04/22 07:53 PFSH Acute PFSH: Medical History MYRTLE (generalized anxiety disorder) Major depressive disorder Mild cognitive impairment OCD (obsessive compulsive disorder) Psychiatric care Surgical History History of cholecystectomy Family History Other Alcohol abuse Social History Smoking and tobacco status: current every day smoker cigarettes Packs smoked per day: 0.1 Years cigarettes smoked: 50 Quit status (tobacco): considering quitting Second hand smoke exposure: No Alcohol intake: former Former alcohol use details: QUIT 2019 Current gender identity: Male Vitals/I&O/Wt Last Vital Signs Temp 100.9 F H 09/04/22 05:00 Pulse 75 09/04/22 05:00 Resp 24 H 09/04/22 05:00 BP 108/63 09/04/22 05:00 Pulse Ox 92 09/04/22 05:00 O2 Del Method 09/04/22 05:00 O2 Flow Rate 3 09/04/22 05:00 Weight last 48 hrs Weight 108.862 kg Physical Exam Resp: COMMON NORMALS: clear to auscultation bilaterally EFFORT & INSPECTION: Yes symmetric chest movement AUSCULTATION: clear to auscultation bilaterally Cardio: COMMON NORMALS: regular rate, regular rhythm, S1 normal heart sound present, S2 normal heart sound present, No gallops present (Cardio), No murmurs present (Cardio), No rub (Cardio) and Peripheral pulses 2+ throughout RATE: regular rate RHYTHM: regular rhythm HEART SOUNDS: S1 normal heart sound present and S2 normal heart sound present PERIPHERAL PULSES: Peripheral pulses 2+ throughout GI: COMMON NORMALS: Normal to inspection, nondistended, normoactive bowel sounds present, Soft to palpation, non-tender, No hepatosplenomegaly present and no masses AUSCULTATION: Yes normoactive bowel sounds PALPATION: Yes Soft to palpation and Yes No hepatosplenomegaly present RECTAL EXAM: Yes deferred Extremity: COMMON NORMALS: no clubbing, cyanosis or edema and no pedal edema Data : 09/04/22 03:52 09/04/22 03:52 A&P Assessment and plan (1) Leukopenia: (2) Mild cognitive impairment: (3) Benign essential HTN: (4) Nicotine dependence, cigarettes, with unspecified nicotine-induced disorders: (5) Hypoxia: (6) Fever: (7) Pneumonia due to COVID-19 virus: Plan 66 year old male with past medical history of hypertension, mild cognitive impairment, depression, nicotine dependence came in with chief complaint of not feeling well for last 1 week, was complaining of generalized weakness malaise, fever with chills, shortness of breath, cough, which has progressively worsened since then. Assessment: COVID-19 pneumonia Hypoxia Hypertension Depression Leukopenia Plan: Currently patient is on COVID protocol, monitor, inflammatory markers(ESR CRP D-dimer ferritin LDH) Monitor x-ray chest Monitor ABG On dexamethasone as well as remdesivir Empirically on antibiotics DuoNebs Supplemental oxygen as needed DVT prophylaxis: On Lovenox CODE STATUS: Full code Attestations Medical Necessity Statement*: Patient is in hospital for management of COVID-19. Anticipated length of stay greater than 2 midnights. Time Spent in Patient Care: Greater than 35 minutes Coding Level of Care Code Acute Manager Life for g Fwd Exam Detailed Diagnoses Leukopenia D72.819 Mild cognitive impairment G31.84 Benign essential HTN I10 Nicotine dependence, cigarettes, with unspecified nicotine-induced disorders F17.219 Hypoxia R09.02 Fever R50.9 Pneumonia due to COVID-19 virus U07.1; J12.82
[2022-09-04 05:46] LABS: Adenovirus Not Detected (NOT DETECT); Chlamydia Pneumoniae Not Detected (NOT DETECT); Coronavirus 229E,HKU1,NL63,OC4 Not Detected (NOT DETECT); Human Metapneumovirus Not Detected (NOT DETECT); Human Rhinovirus/Enterovirus Not Detected (NOT DETECT); Influenza A Not Detected (NOT DETECT); Influenza A H1 Not Detected (NOT DETECT); Influenza A H1-2009 Not Detected (NOT DETECT); Influenza A H3 Not Detected (NOT DETECT); Influenza B Not Detected (NOT DETECT); Mycoplasma Pneumoniae Not Detected (NOT DETECT); Parainfluenza Virus Type 1 Not Detected (NOT DETECT); Parainfluenza Virus Type 2 Not Detected (NOT DETECT); Parainfluenza Virus Type 3 Not Detected (NOT DETECT); Parainfluenza Virus Type 4 Not Detected (NOT DETECT); Respiratory Syncytial Virus A Not Detected (NOT DETECT); Respiratory Syncytial Virus B Not Detected (NOT DETECT); SARS-COV-2 Detected (NOT DETECT)
[2022-09-04] MEDS: cefTRIAXone 1,000 MG in sodium chloride 0.9% (plus) 50 ML 100 MG IV (06:00)
[2022-09-04] MEDS: enoxaparin 40 mg/0.4 mL Syringe SUBCUT (06:00)
[2022-09-04] MEDS: azithromycin 500 MG in sodium chloride 0.9% 250 ML 250 MG IV (06:10)
[2022-09-04 06:13] LABS: Troponin 5 2HR 26.06 ng/L (0-15)
[2022-09-04 06:16] LABS: Troponin 5 2HR Delta 6.06 ABS# (0-10)
[2022-09-04] MEDS: remdesivir 200 MG in sodium chloride 0.9% (100 ml) 60 ML 100 MG IV (06:50)
--- NOTE | 2022-09-04 08:03 | PC.PHAR ---
pt states he takes care of his own medications-pt states he doesnt take questran ext med history shows last filled 07/13/22 8d/s-
[2022-09-04 10:01] LABS: Troponin 5 6HR 22.24 ng/L (0-15)
[2022-09-04 10:02] LABS: Troponin 5 6HR Delta 2.24 ng/L (0-12)
[2022-09-04] MEDS: dexamethasone 10 mg/mL INJ 6 MG IVP (10:12)
--- NOTE | 2022-09-04 11:26 | ECG_ITS ---
[facility] Test Date: 2022-09-04 Pat Name: Shon Scanlon Department: Room: 269 Gender: Male Central Supply Clerk: : 1955 Requested By: Dante Pitts Order Number: [id number] Johana MD: Yan Trotter M.D. Measurements Intervals [place] Rate: 59 P: 46 [place]: 155 QRS: 14 QRSD: 94 T: 29 QT: 381 QTc: 378 Interpretive Statements SINUS BRADYCARDIA SEPTAL MYOCARDIAL INFARCTION , OF INDETERMINATE AGE [40+ ms Q WAVE IN V1/V2] Compared to ECG 09/04/2022 05:32:11 Sinus rhythm no longer present Myocardial infarct finding still present Electronically Signed On 09-05-2022 8:20:42 CDT by Yan Trotter M.D. [id number]
[2022-09-04] MEDS: ipratropium-albuterol 3 mL Neb INHALATION ×3 (11:33→20:19)
--- NOTE | 2022-09-04 12:44 | PM.PN ---
Subjective Subjective: He is doing slightly better. He states he has intermittent cough. Denies headache. No nausea vomiting or diarrhea. Vitals/I&O/Wt Last Vital Signs Temp 98.6 F 09/04/22 10:54 Pulse 60 09/04/22 11:36 Resp 18 09/04/22 11:36 BP 119/68 09/04/22 10:54 Pulse Ox 96 09/04/22 11:36 O2 Del Method 09/04/22 11:36 O2 Flow Rate 4 09/04/22 11:36 09/03/22 09/04/22 09/04/22 22:59 06:59 14:59 Intake Total 50 / 50 350 / 350 Balance 50 / 50 350 / 350 Weight last 48 hrs Weight 108.363 kg Weight 108.862 kg Physical Exam Const: COMMON NORMALS: patient oriented x3 and alert GENERAL APPEARANCE: cooperative ORIENTATION/CONSCIOUSNESS: Yes awake HENMT: COMMON NORMALS: oropharynx normal Neck/C-Spine: COMMON NORMALS: no JVD Resp: COMMON NORMALS: normal respiratory effort AUSCULTATION: wheezes (faint/coarse) and diminished lung sounds Cardio: COMMON NORMALS: no JVD, regular rhythm, S1 normal heart sound present, S2 normal heart sound present and No murmurs present (Cardio) RHYTHM: regular rhythm HEART SOUNDS: S1 normal heart sound present and S2 normal heart sound present GI: COMMON NORMALS: Normal to inspection, nondistended, normoactive bowel sounds present, Soft to palpation and non-tender PALPATION: Yes Soft to palpation Extremity: COMMON NORMALS: no joint enlargement and no pedal edema Neuro: COMMON NORMALS: patient oriented x3 and moves all extremities SENSORIUM/ORIENTATION: Yes alert Skin: COMMON NORMALS: no rashes or lesions noted GENERAL SKIN EXAM: no rashes or lesions noted Data : 09/04/22 03:52 09/04/22 03:52 Micro: Microbiology 09/04/22 05:26 Blood Culture - Preliminary Blood SPECIMEN COLLECTED 09/04/22 05:26 Blood Culture - Preliminary Blood SPECIMEN COLLECTED A&P Assessment and plan (1) Pneumonia due to COVID-19 virus: Severe COVID-pneumonia, hypoxia. Continue remdesivir, Decadron. Oxygen support. He is empirically on ceftriaxone as well. Assess D-dimer. Continue DVT prophylaxis with Lovenox. (2) Leukopenia: Secondary to COVID-19, reassess counts. (3) Mild cognitive impairment: (4) Benign essential HTN: (5) Nicotine dependence, cigarettes, with unspecified nicotine-induced disorders: Nicotine replacement as needed (6) Hypoxia: (7) Fever: Attestations Medical Necessity Statement*: Continue admission for assessment of management of severe COVID-pneumonia. Coding Level of Care Code Acute Drawing Hand for [facility] Fwd Diagnoses Pneumonia due to COVID-19 virus U07.1; J12.82 Leukopenia D72.819 Mild cognitive impairment G31.84 Benign essential HTN I10 Nicotine dependence, cigarettes, with unspecified nicotine-induced disorders F17.219 Hypoxia R09.02 Fever R50.9
[2022-09-04] MEDS: ALPRAZolam 0.5 mg Tablet 1 MG PO (17:43)
[2022-09-04] MEDS: aspirin 81 mg EC Tablet PO (17:43)
[2022-09-05] VITALS (11 sets, daily range): BP systolic 113–135; BP diastolic 62–76; PULSE 52–68; RESP 16–22; TEMP 36.2–36.8; O2SAT 93–98
[2022-09-05] MEDS: cefTRIAXone 1,000 MG in sodium chloride 0.9% (plus) 50 ML 100 MG IV (04:47)
[2022-09-05] MEDS: azithromycin 500 MG in sodium chloride 0.9% 250 ML 250 MG IV (05:22)
[2022-09-05] MEDS: enoxaparin 40 mg/0.4 mL Syringe SUBCUT (05:25)
[2022-09-05] MEDS: remdesivir 100 MG in sodium chloride 0.9% (100 ml) 80 ML IV (06:12)
[2022-09-05] MEDS: sodium chloride 0.9% (100 ml) 100 ML 30 ML (06:18)
[2022-09-05 06:45] LABS: Hematocrit 43.6 % (42.0-52.0); Hemoglobin 15.1 g/dL (11.7-16.6); Lymphocytes # 1.1 10^3/uL (0.8-4.8); Lymphocytes % 26.5 %; Mean Corpuscular HGB Conc 34.6 g/dL (30.0-36.0); Mean Corpuscular Hemoglobin 32.5 pg (28.0-34.0); Mean Platelet Volume 11.7 fL (7.4-10.4); Monocytes # 0.6 10^3/uL (0.2-0.9); Neutrophils # 2.46 10^3/uL (1.8-7.7); Neutrophils % 59.3 %; Nucleated Red Blood Cells % 0 %; Platelet Count 164 10^3/cmm (130-400); Red Blood Count 4.64 10^6/uL (4.1-5.3); Red Cell Distribution Width 14.3 % (12.1-15.1); White Blood Count 4.2 10^3/uL (4.0-10.0)
[2022-09-05 06:48] LABS: Erythrocyte Sedimentation Rate 3 mm/hr (0-10)
[2022-09-05 06:53] LABS: D Dimer 0.76 ug/mIFEU (0-0.59)
[2022-09-05 07:01] LABS: Alanine Aminotransferase 65 U/L (0-41); Albumin Level 3.4 g/dL (3.5-5.2); Alkaline Phosphatase 52 U/L (40-130); Anion Gap 15.6 (5-19); Aspartate Amino Transferase 57 U/L (0-40); Blood Urea Nitrogen 19 mg/dL (8-23); C Reactive Protein 33.7 mg/L (0.0-4.9); Calcium 9.1 mg/dL (8.5-10.5); Carbon Dioxide 24 mmol/L (22-29); Chloride 105 mmol/L (98-107); Globulin 2.6 g/dL (1.3-4.6); Glomerular Filtration Rate 96.1 mL/min (90-130); Glucose 137 mg/dL (65-115); Magnesium 2.1 mg/dL (1.7-2.3); Osmolality Calculated 294 mOsm/kg (285-295); Potassium 4.6 mmol/L (3.5-5.1); Sodium 140 mmol/L (136-145); Total Bilirubin 0.3 mg/dL (0.15-1.2)
[2022-09-05 07:51] LABS: Ferritin 1494 ng/mL (30-400)
[2022-09-05] MEDS: aspirin 325 mg Tablet PO (08:47)
[2022-09-05] MEDS: dexamethasone 10 mg/mL INJ 6 MG IVP (08:47)
[2022-09-05] MEDS: ipratropium-albuterol 3 mL Neb INHALATION ×2 (08:52→15:25)
[2022-09-05] MEDS: ALPRAZolam 0.5 mg Tablet 1 MG PO (09:12)
--- NOTE | 2022-09-05 15:06 | P.PN_ITS ---
Subjective Subjective: He is overall feeling tired, weak, coughing, headache, no nausea vomiting or diarrhea. Vitals/I&O/Wt Last Vital Signs Temp 97.6 F 09/05/22 12:00 Pulse 62 09/05/22 12:00 Resp 16 09/05/22 12:00 BP 124/68 09/05/22 12:00 Pulse Ox 97 09/05/22 12:00 O2 Del Method 09/05/22 12:00 O2 Flow Rate 4 09/04/22 20:18 09/05/22 09/05/22 09/05/22 06:59 14:59 22:59 Intake Total 780 / 1490 440 / 440 Balance 780 / 1490 440 / 440 Weight last 48 hrs Weight 108.363 kg Weight 108.862 kg Physical Exam Const: COMMON NORMALS: patient oriented x3 and alert GENERAL APPEARANCE: cooperative and anxious ORIENTATION/CONSCIOUSNESS: Yes awake HENMT: COMMON NORMALS: oropharynx normal Neck/C-Spine: COMMON NORMALS: no JVD Resp: COMMON NORMALS: normal respiratory effort and clear to auscultation bilaterally AUSCULTATION: clear to auscultation bilaterally Cardio: COMMON NORMALS: no JVD, regular rhythm, S1 normal heart sound present, S2 normal heart sound present and No murmurs present (Cardio) RHYTHM: regular rhythm HEART SOUNDS: S1 normal heart sound present and S2 normal heart sound present GI: COMMON NORMALS: Normal to inspection, nondistended, normoactive bowel sounds present, Soft to palpation and non-tender PALPATION: Yes Soft to palpation Extremity: COMMON NORMALS: no joint enlargement and no pedal edema Neuro: COMMON NORMALS: patient oriented x3 and moves all extremities SENSORIUM/ORIENTATION: Yes alert Skin: COMMON NORMALS: no rashes or lesions noted GENERAL SKIN EXAM: no rashes or lesions noted Data : 09/05/22 05:41 09/05/22 05:41 Micro: Microbiology 09/04/22 05:26 Blood Culture - Preliminary Blood NEGATIVE TO DATE 09/04/22 05:26 Blood Culture - Preliminary Blood NEGATIVE TO DATE A&P Assessment and plan (1) Pneumonia due to COVID-19 virus: He is feeling weak, with headache. Does appear to be weaning off oxygen. Continue remdesivir, Decadron. Wean off oxygen as tolerating. He is empirically on ceftriaxone as well. Assess D-dimer. Continue DVT prophylaxis with Lovenox. He is generally weak, will get assessment by PT. His is ill at home as well, weak herself. In case he is improving, does well with PT, likely should be able to return home, possibly even tomorrow in case maintaining oxygenation well, possibly with home health. Would need a ride. (2) Leukopenia: Secondary to COVID-19, reassess counts. (3) Mild cognitive impairment: (4) Benign essential HTN: (5) Nicotine dependence, cigarettes, with unspecified nicotine-induced disorders: Nicotine replacement as needed (6) Hypoxia: (7) Fever: Attestations Medical Necessity Statement*: Continue admission for assessment management of severe COVID-19, discharge planning. Coding Level of Care Code Acute Rose Grader for [facility]ad Diagnoses Pneumonia due to COVID-19 virus U07.1; J12.82 Leukopenia D72.819 Mild cognitive impairment G31.84 Benign essential HTN I10 Nicotine dependence, cigarettes, with unspecified nicotine-induced disorders F17.219 Hypoxia R09.02 Fever R50.9
[2022-09-06] VITALS (12 sets, daily range): BP systolic 122–160; BP diastolic 70–76; PULSE 53–68; RESP 16–18; TEMP 36.3–36.8; O2SAT 90–97
[2022-09-06] MEDS: enoxaparin 40 mg/0.4 mL Syringe SUBCUT (04:49)
[2022-09-06] MEDS: cefTRIAXone 1,000 MG in sodium chloride 0.9% (plus) 50 ML 100 MG IV (04:49)
[2022-09-06] MEDS: azithromycin 500 MG in sodium chloride 0.9% 250 ML 250 MG IV (04:49)
[2022-09-06 05:19] LABS: Basophils % 0.1 %; Hematocrit 43.7 % (42.0-52.0); Hemoglobin 14.8 g/dL (11.7-16.6); Lymphocytes # 1.4 10^3/uL (0.8-4.8); Lymphocytes % 12.6 %; Mean Corpuscular HGB Conc 33.9 g/dL (30.0-36.0); Mean Corpuscular Hemoglobin 31.8 pg (28.0-34.0); Mean Platelet Volume 11.4 fL (7.4-10.4); Monocytes % 9.3 %; Neutrophils # 8.37 10^3/uL (1.8-7.7); Neutrophils % 77.6 %; Nucleated Red Blood Cells % 0 %; Platelet Count 202 10^3/cmm (130-400); Red Blood Count 4.65 10^6/uL (4.1-5.3); Red Cell Distribution Width 14.2 % (12.1-15.1); White Blood Count 10.8 10^3/uL (4.0-10.0)
[2022-09-06 05:45] LABS: Alanine Aminotransferase 58 U/L (0-41); Albumin Level 3.5 g/dL (3.5-5.2); Alkaline Phosphatase 56 U/L (40-130); Anion Gap 15.7 (5-19); Aspartate Amino Transferase 34 U/L (0-40); Blood Urea Nitrogen 20 mg/dL (8-23); Calcium 9.3 mg/dL (8.5-10.5); Carbon Dioxide 25 mmol/L (22-29); Chloride 107 mmol/L (98-107); Globulin 2.6 g/dL (1.3-4.6); Glomerular Filtration Rate 83.9 mL/min (90-130); Glucose 130 mg/dL (65-115); Osmolality Calculated 300 mOsm/kg (285-295); Potassium 4.7 mmol/L (3.5-5.1); Sodium 143 mmol/L (136-145); Total Bilirubin 0.3 mg/dL (0.15-1.2); Total Protein 6.1 g/dL (6.6-8.7)
[2022-09-06] MEDS: sodium chloride 0.9% (100 ml) 100 ML 30 ML (06:17)
[2022-09-06] MEDS: remdesivir 100 MG in sodium chloride 0.9% (100 ml) 80 ML IV (06:18)
[2022-09-06] MEDS: dexamethasone 10 mg/mL INJ 6 MG IVP (07:58)
[2022-09-06] MEDS: aspirin 81 mg EC Tablet PO (07:58)
[2022-09-06] MEDS: ipratropium-albuterol 3 mL Neb INHALATION ×4 (08:14→19:51)
[2022-09-06] MEDS: ALPRAZolam 0.5 mg Tablet 1 MG PO ×2 (09:25→21:09)
[2022-09-06] MEDS: benzonatate 100 mg Capsule 200 MG PO (10:59)
--- NOTE | 2022-09-06 14:19 | PM.PN ---
Subjective Subjective: He feels weak, today feels further confused he states due to multiple interventions, beeping IV, did try to work with therapy. He is not sure that he is well enough currently to manage at home. Still coughing. No nausea, vomiting or diarrhea. Vitals/I&O/Wt Last Vital Signs Temp 98.2 F 09/06/22 08:00 Pulse 60 09/06/22 11:58 Resp 16 09/06/22 11:58 BP 147/74 09/06/22 11:58 Pulse Ox 96 09/06/22 11:58 O2 Del Method 09/06/22 11:58 O2 Flow Rate 2 09/06/22 11:35 09/05/22 09/06/22 09/06/22 22:59 06:59 14:59 Intake Total 300 / 980 640 / 640 Balance 300 / 980 640 / 640 Physical Exam Const: COMMON NORMALS: patient oriented x3 and alert GENERAL APPEARANCE: cooperative and anxious ORIENTATION/CONSCIOUSNESS: Yes awake HENMT: COMMON NORMALS: oropharynx normal Neck/C-Spine: COMMON NORMALS: no JVD Resp: COMMON NORMALS: normal respiratory effort and clear to auscultation bilaterally AUSCULTATION: clear to auscultation bilaterally, wheezes (faint/coarse) and diminished lung sounds Cardio: COMMON NORMALS: no JVD, regular rhythm, S1 normal heart sound present, S2 normal heart sound present and No murmurs present (Cardio) RHYTHM: regular rhythm HEART SOUNDS: S1 normal heart sound present and S2 normal heart sound present GI: COMMON NORMALS: Normal to inspection, nondistended, normoactive bowel sounds present, Soft to palpation and non-tender PALPATION: Yes Soft to palpation Extremity: COMMON NORMALS: no joint enlargement and no pedal edema Neuro: COMMON NORMALS: patient oriented x3 and moves all extremities SENSORIUM/ORIENTATION: Yes alert Skin: COMMON NORMALS: no rashes or lesions noted GENERAL SKIN EXAM: no rashes or lesions noted Data : 09/06/22 04:45 09/06/22 04:45 A&P Assessment and plan (1) Pneumonia due to COVID-19 virus: Oxygenation is improving. He still feels weak, feels somewhat confused. As his is ill at home as well, for now we will continue treatment here, reassess again tomorrow to see if he continues to improve. Otherwise likely may be able to return home within the next 1-2 days. Continue remdesivir, Decadron. Wean off oxygen as tolerating. He is empirically on ceftriaxone as well. Check procalcitonin. Assess D-dimer. Continue DVT prophylaxis with Lovenox. He is generally weak, will get assessment by PT. His is ill at home as well, weak herself. In case he is improving, does well with PT, likely should be able to return home, possibly even tomorrow in case maintaining oxygenation well, possibly with home health. Would need a ride. (2) Leukopenia: Secondary to COVID-19, reassess counts. (3) Mild cognitive impairment: (4) Benign essential HTN: (5) Nicotine dependence, cigarettes, with unspecified nicotine-induced disorders: Nicotine replacement as needed (6) Hypoxia: (7) Fever: Attestations Medical Necessity Statement*: Continue admission for assessment management of improving severe COVID-19 pneumonia. Coding Level of Care Code Acute Die Try Out Worker Stamping for [facility] Rosa Diagnoses Pneumonia due to COVID-19 virus U07.1; J12.82 Leukopenia D72.819 Mild cognitive impairment G31.84 Benign essential HTN I10 Nicotine dependence, cigarettes, with unspecified nicotine-induced disorders F17.219 Hypoxia R09.02 Fever R50.9
[2022-09-07] VITALS (10 sets, daily range): BP systolic 140–160; BP diastolic 67–77; PULSE 47–60; RESP 16–18; TEMP 36.4–36.8; O2SAT 93–96
[2022-09-07 05:24] LABS: Basophils % 0.1 %; Hematocrit 45.1 % (42.0-52.0); Hemoglobin 15.1 g/dL (11.7-16.6); Lymphocytes # 1.4 10^3/uL (0.8-4.8); Lymphocytes % 15.2 %; Mean Corpuscular HGB Conc 33.5 g/dL (30.0-36.0); Mean Corpuscular Hemoglobin 31.6 pg (28.0-34.0); Mean Corpuscular Volume 94.4 fl (80-94); Mean Platelet Volume 10.6 fL (7.4-10.4); Monocytes # 0.9 10^3/uL (0.2-0.9); Monocytes % 9.9 %; Neutrophils # 6.92 10^3/uL (1.8-7.7); Neutrophils % 74.2 %; Nucleated Red Blood Cells % 0 %; Platelet Count 191 10^3/cmm (130-400); Red Blood Count 4.78 10^6/uL (4.1-5.3); Red Cell Distribution Width 13.9 % (12.1-15.1); White Blood Count 9.3 10^3/uL (4.0-10.0)
[2022-09-07] MEDS: cefTRIAXone 1,000 MG in sodium chloride 0.9% (plus) 50 ML 100 MG IV (05:31)
[2022-09-07] MEDS: azithromycin 500 MG in sodium chloride 0.9% 250 ML 250 MG IV (05:32)
[2022-09-07] MEDS: enoxaparin 40 mg/0.4 mL Syringe SUBCUT (05:32)
[2022-09-07 05:41] LABS: D Dimer 0.36 ug/mIFEU (0-0.59)
[2022-09-07 05:57] LABS: Alanine Aminotransferase 78 U/L (0-41); Albumin Level 3.5 g/dL (3.5-5.2); Alkaline Phosphatase 51 U/L (40-130); Anion Gap 15.5 (5-19); Aspartate Amino Transferase 42 U/L (0-40); Blood Urea Nitrogen 20 mg/dL (8-23); Calcium 9.3 mg/dL (8.5-10.5); Carbon Dioxide 27 mmol/L (22-29); Chloride 104 mmol/L (98-107); Globulin 2.4 g/dL (1.3-4.6); Glomerular Filtration Rate 96.1 mL/min (90-130); Glucose 132 mg/dL (65-115); Osmolality Calculated 298 mOsm/kg (285-295); Potassium 4.5 mmol/L (3.5-5.1); Sodium 142 mmol/L (136-145); Total Bilirubin 0.4 mg/dL (0.15-1.2); Total Protein 5.9 g/dL (6.6-8.7)
[2022-09-07 05:59] LABS: Procalcitonin 0.06 ng/mL (0-0.5)
[2022-09-07] MEDS: remdesivir 100 MG in sodium chloride 0.9% (100 ml) 80 ML IV (06:09)
[2022-09-07] MEDS: ALPRAZolam 0.5 mg Tablet 1 MG PO (07:28)
[2022-09-07] MEDS: aspirin 325 mg Tablet PO (07:29)
[2022-09-07] MEDS: dexamethasone 10 mg/mL INJ 6 MG IVP (07:29)
[2022-09-07] MEDS: ipratropium-albuterol 3 mL Neb INHALATION ×2 (08:38→11:38)
--- NOTE | 2022-09-07 11:26 | PC.SOCIAL ---
IMM Update pg 2 of IMM updated and reviewed via phone w/ patients . Copy dated, initialed and placed in chart. declines need for # to appeal @ this time.
[2022-09-07] MEDS: loperamide 2 mg Capsule 4 MG PO (14:15)
--- NOTE | 2022-09-07 15:08 | P.DS_ITS ---
Discharge Providers Date of Admission: 09/04/22 05:35 Date of Discharge: September 07, 2022 Attending Provider at Admission: Cezar Davidson MD Attending Provider at Discharge: Charly Moses Primary Care Provider: Megan Tomas DO Diagnoses at Discharge Discharge Diagnosis (1) Pneumonia due to COVID-19 virus: Status: Acute (2) Leukopenia: Status: Acute (3) Mild cognitive impairment: Status: Acute (4) Benign essential HTN: Status: Acute (5) Nicotine dependence, cigarettes, with unspecified nicotine-induced disorders: Status: Acute (6) Hypoxia: Status: Acute (7) Fever: Status: Acute Reason for Visit Reason for Visit: [facility] Hospital Course Hospital Course Pleasant 66-year-old gentleman was admitted for assessment of management due to respiratory failure, severe COVID-19 pneumonia, with new hypoxia, required up to 5 L nasal cannula oxygen supplementation. Bothered by cough, headache, intermittent loose stools. Received treatment with Decadron, remdesivir, empirically ceftriaxone and azithromycin for possible bacterial superinfection, supportive care with antitussives, breathing treatments, Lovenox VT prophylaxis. His condition gradually improved, respiratory failure resolved, fevers resolved. Initially leukopenia has normalized. His hospitalization was complicated by debilitating anxiety which is longstanding, exacerbated due to acute condition, as well as deconditioning. Overall condition continues to improve. He weaned down on oxygen to room air. Without suggestion of ongoing bacterial infection antibiotics are not continued. As he is feeling much better he is returning home today. He is ambulating to the restroom and around the room. D-dimer has normalized. He no longer requires oxygen on home O2 evaluation. Physical Exam Const: COMMON NORMALS: patient oriented x3 and alert GENERAL APPEARANCE: cooperative and other (Today he is calmer, more collected. In better spirits.) ORIENTATION/CONSCIOUSNESS: Yes awake HENMT: COMMON NORMALS: oropharynx normal Neck/C-Spine: COMMON NORMALS: no JVD Resp: COMMON NORMALS: normal respiratory effort and clear to auscultation bilaterally AUSCULTATION: clear to auscultation bilaterally, wheezes (faint/coarse) and diminished lung sounds Cardio: COMMON NORMALS: no JVD, regular rhythm, S1 normal heart sound present, S2 normal heart sound present and No murmurs present (Cardio) RHYTHM: regular rhythm HEART SOUNDS: S1 normal heart sound present and S2 normal heart sound present GI: COMMON NORMALS: Normal to inspection, nondistended, normoactive bowel sounds present, Soft to palpation and non-tender PALPATION: Yes Soft to palpation Extremity: COMMON NORMALS: no joint enlargement and no pedal edema Neuro: COMMON NORMALS: patient oriented x3 and moves all extremities SENSORIUM/ORIENTATION: Yes alert Skin: COMMON NORMALS: no rashes or lesions noted GENERAL SKIN EXAM: no rashes or lesions noted Discharge Data Studies Completed and Pending Completed Studies During Hospitalization Category Date Time Status XR chest 1V portable [id number] Stat Exams 09/04/22 03:45 Completed Pending at discharge Category Date Time Status Blood Culture Stat Lab 09/04/22 05:26 Results Radiology Impressions Chest X-Ray 09/04/22 03:45 IMPRESSION: Emphysematous change , interstitial prominence, and mild basilar airspace disease. Laboratory Results WBC 9.3 10^3/uL (4.0-10.0) 09/07/22 05:15 RBC 4.78 10^6/uL (4.1-5.3) 09/07/22 05:15 Hgb 15.1 g/dL (11.7-16.6) 09/07/22 05:15 Hct 45.1 % (42.0-52.0) 09/07/22 05:15 MCV 94.4 fl (80-94) H 09/07/22 05:15 MCH 31.6 pg (28.0-34.0) 09/07/22 05:15 MCHC 33.5 g/dL (30.0-36.0) 09/07/22 05:15 RDW 13.9 % (12.1-15.1) 09/07/22 05:15 Plt Count 191 10^3/cmm (130-400) 09/07/22 05:15 MPV 10.6 fL (7.4-10.4) H 09/07/22 05:15 Neut % (Auto) 74.2 % 09/07/22 05:15 Lymph % (Auto) 15.2 % 09/07/22 05:15 [place] % (Auto) 9.9 % 09/07/22 05:15 Eos % (Auto) 0.0 % 09/07/22 05:15 Baso % (Auto) 0.1 % 09/07/22 05:15 Neut # (Auto) 6.92 10^3/uL (1.8-7.7) 09/07/22 05:15 Lymph # (Auto) 1.4 10^3/uL (0.8-4.8) 09/07/22 05:15 [place] # (Auto) 0.9 10^3/uL (0.2-0.9) 09/07/22 05:15 Eos # (Auto) 0.0 10^3/uL (0.0-0.8) 09/07/22 05:15 Baso # (Auto) 0.0 10^3/uL (0.0-0.1) 09/07/22 05:15 Nucleated RBC % (auto) 0 % 09/07/22 05:15 Nucleated RBCs # 0.0 /100WBC 09/07/22 05:15 ESR 3 mm/hr (0-10) 09/05/22 05:41 D-Dimer 0.36 ug/mIFEU (0-0.59) 09/07/22 05:15 Specimen Type Arterial 09/04/22 04:13 Sample Site Radial, left 09/04/22 04:13 ABG pH 7.43 (7.35-7.45) 09/04/22 04:13 ABG pCO2 36.7 mmHg (35-45) 09/04/22 04:13 ABG pO2 57.9 mmHg (80.0-100.0) L 09/04/22 04:13 ABG HCO3 24.1 mmol/L (22-26) 09/04/22 04:13 ABG Base Excess 0.1 mmol/L (-2.0-2.0) 09/04/22 04:13 Edi Test Pos 09/04/22 04:13 Hematocrit 48.6 % (42-52) 09/04/22 04:13 O2 Delivery Device Nc 09/04/22 04:13 O2 Liters/Min 2.0 % 09/04/22 04:13 Hydraulic Controls Technician ID [place] 09/04/22 04:13 Sodium 142 mmol/L (136-145) 09/07/22 05:15 Potassium 4.5 mmol/L (3.5-5.1) 09/07/22 05:15 Chloride 104 mmol/L (98-107) 09/07/22 05:15 Carbon Dioxide 27 mmol/L (22-29) 09/07/22 05:15 Anion Gap 15.5 (5-19) 09/07/22 05:15 BUN 20 mg/dL (8-23) 09/07/22 05:15 Creatinine 0.8 mg/dL (0.7-1.2) 09/07/22 05:15 GFR Calculation 96.1 mL/min (90-130) 09/07/22 05:15 Glucose 132 mg/dL (65-115) H 09/07/22 05:15 Calculated Osmolality 298 mOsm/kg (285-295) H 09/07/22 05:15 Lactic Acid 1.8 mmol/L (0.5-2.2) 09/04/22 03:52 Calcium 9.3 mg/dL (8.5-10.5) 09/07/22 05:15 Magnesium 2.1 mg/dL (1.7-2.3) 09/05/22 05:41 Ferritin 1494 ng/mL (30-400) H 09/05/22 05:41 Total Bilirubin 0.4 mg/dL (0.15-1.2) 09/07/22 05:15 AST 42 U/L (0-40) H 09/07/22 05:15 ALT 78 U/L (0-41) H 09/07/22 05:15 Alkaline Phosphatase 51 U/L (40-130) 09/07/22 05:15 Troponin T Baseline 20 ng/L (0-15) H 09/04/22 03:52 Troponin T 120 Minute 26.06 ng/L (0-15) H 09/04/22 05:26 Delta Troponin T 6.06 ABS# (0-10) 09/04/22 05:26 Troponin T Hi Sens 6Hr 22.24 ng/L (0-15) H 09/04/22 09:30 Troponin T Hi Sens 6Hr Delta 2.24 ng/L (0-12) 09/04/22 09:30 C-Reactive Protein 33.7 mg/L (0.0-4.9) H 09/05/22 05:41 NT-Pro-B Natriuret Pep 104 pg/mL (0-125) 09/04/22 03:52 Total Protein 5.9 g/dL (6.6-8.7) L 09/07/22 05:15 Albumin 3.5 g/dL (3.5-5.2) 09/07/22 05:15 Globulin 2.4 g/dL (1.3-4.6) 09/07/22 05:15 Procalcitonin 0.06 ng/mL (0-0.5) 09/07/22 05:15 Coronavirus 229E (PCR) Not detected (NOT DETECT) 09/04/22 03:52 SARS-CoV-2 (PCR) Detected (NOT DETECT) A 09/04/22 03:52 Vitals Last Vital Signs Temp 97.6 F 09/07/22 08:00 Pulse 56 L 09/07/22 12:00 Resp 17 09/07/22 12:00 BP 148/71 09/07/22 12:00 Pulse Ox 94 09/07/22 12:00 O2 Del Method 09/07/22 12:00 O2 Flow Rate 1 09/07/22 08:39 Discharge Plan Discharge Patient Disposition: Home Health Service Condition: Stable Prescriptions: New benzonatate 100 mg Capsule 100 mg PO TID PRN (Reason: Cough) Qty: 30 0RF nicotine 21 mg/24 hr Patch 24 Hour 1 patch transdermal DAILY PRN (Reason: Withdrawal) Qty: 90 0RF nicotine (polacrilex) 2 mg lozenge 2 mg buccal Q2H PRN (Reason: nicotine cravings) Qty: 90 3RF Continued aspirin 325 mg tablet 325 mg PO .ON MON,WED,FRI alprazolam 1 mg tablet 1 mg PO TID PRN (Reason: anxiety) 30 Days Qty: 90 3RF zinc acetate 50 mg (zinc) Capsule 50 mg PO DAILY PRN (Reason: unknown) aspirin 81 mg Tablet,Delayed Release (Dr/Ec) See Rx Instructions .ROUTE .COMPLEX Rx Instructions: 81 mg orally po sun,tues,thurs,and sat Vitamin C 500 mg Tablet 500 mg PO DAILY PRN (Reason: unknown) Vitamin D3 25 mcg (1,000 unit) Tablet 25 mcg PO DAILY PRN (Reason: unknown) lisinopril 10 mg tablet 10 mg PO QAM Discharge Orders: Discharge Order (Routine); Ordered 09/07/22 Ordered By: Charly Moses Referrals: [facility] [place] [facility] ([facility]) [Outside] Megan Tomas DO [Primary Care Provider] - 09/14/22 10:30 am Discharge Diet: Advance as tolerated Discharge Activity: Increase activity as tolerated Patient Instructions: Benzonatate (By mouth), Nicotine (Into the mouth), Nicotine (Absorbed through the skin), How to Stop Smoking (GEN), Cigarette Smoking and Your Health (GEN), COVID-19 (Coronavirus Disease 2019) (GEN) Activity Restrictions/Additional Instructions: After you recover from acute illness, consider vaccination for COVID-19 to help prevent recurrence of severe COVID-19 illness. Please attempt to quit smoking. Discharge Attestations Time Spent in Discharge Care*: greater than 30 min Quality Metrics Clinical Quality Measures [ No reported AMI, CVA or VTE this stay] Coding Level of Care Code Acute Chg FW DC note Diagnoses Pneumonia due to COVID-19 virus U07.1; J12.82 Leukopenia D72.819 Mild cognitive impairment G31.84 Benign essential HTN I10 Nicotine dependence, cigarettes, with unspecified nicotine-induced disorders F17.219 Hypoxia R09.02 Fever R50.9
== END 2022-09-07 16:38 | disposition home or self-care (01) | DRG 177 ==
LOC: ER 05:42 → MEDSURG 06:55
PROVIDERS: Admitting Provider Internal Medicine; Emergency Provider Emergency Medicine; PCP Family Medicine; Visit Provider Internal Medicine
DX: U07.1 COVID-19 (principal); J12.81 Pneumonia due to SARS-associated coronavirus; J96.01 Acute respiratory failure with hypoxia; F17.210 Nicotine dependence, cigarettes, uncomplicated; I10 Essential (primary) hypertension; D72.819 Decreased white blood cell count, unspecified; G31.84 Mild cognitive impairment of uncertain or unknown etiology; F41.9 Anxiety disorder, unspecified; Z79.82 Long term (current) use of aspirin; E78.5 Hyperlipidemia, unspecified
CPT/HCPCS: 36415; 36600; 71045; 80053; 82728; 82803; 83605; 83735; 83880; 84145; 84484; 85025; 85378; 85651; 86140; 87040; 87635; 93005; 94640; 94760; 96365; 96367; 96372; 96375; 97110; 97161; 99285; J0456; J0696; J1100; J1650; J7050

== ENCOUNTER → 2023-02-18 12:07 | Outpatient (BNVA) | payer MEDICARE, MEDICAID, SELFPAY | PROVIDERS: PCP Family Medicine; Visit Provider Family Medicine | DX: I10 Essential (primary) hypertension (principal); R35.1 Nocturia | CPT/HCPCS: 80053; 80061; 82043; 84153; 85025 ==

== ENCOUNTER 2023-08-09 12:37 | Outpatient (CLI) | payer MEDICARE, SELFPAY ==
--- NOTE | 2023-08-09 13:00 | USR_ITS ---
PROCEDURE INFORMATION: Exam: US Duplex Bilateral Lower Extremity Arteries Exam date and time: 08/09/2023 1:23 PM Age: 67 years old Clinical indication: Pain; Leg, lower; Bilateral; Additional info: Pad, arterial insufficiency TECHNIQUE: Imaging protocol: Real-time ultrasound scan of the arteries of the bilateral lower extremities with 2-D brennan scale, color Doppler flow and spectral waveform analysis. Images documented and saved. COMPARISON: No relevant prior studies available. FINDINGS: Right common femoral artery: No occlusion or significant stenosis. Monophasic waveform. Right superficial femoral artery: Occluded mid and distal superficial femoral artery. The proximal portion is patent with monophasic waveform. Right popliteal artery: Patent popliteal artery with decreased amplitude and monophasic waveform. Right calf/foot arteries: No occlusion or significant stenosis in the visualized arteries. Monophasic waveforms. Dorsalis pedis artery is patent. Left common femoral artery: Decreased amplitude and monophasic waveform of the common femoral artery. Left superficial femoral artery: Decreased amplitude and monophasic waveform throughout the superficial femoral artery. Left popliteal artery: Decreased amplitude and monophasic waveform of the popliteal artery. Left calf/foot arteries: No occlusion or significant stenosis in the visualized arteries. Monophasic waveforms. Dorsalis pedis artery is [place]. US/[place] [id number] IMPRESSION: 1. Occluded right superficial femoral artery along the mid and distal aspects. 2. Decreased amplitude and monophasic waveforms throughout the left lower extremity suggesting significant stenosis proximally.
== END 2023-08-09 12:38 | disposition home or self-care (01) ==
PROVIDERS: PCP Family Medicine; Visit Provider Family Medicine
DX: I73.9 Peripheral vascular disease, unspecified (principal); I77.1 Stricture of artery
CPT/HCPCS: 93925

== ENCOUNTER → 2023-09-02 13:16 | Outpatient (BNVA) | payer MEDICARE, SELFPAY | PROVIDERS: PCP Family Medicine; Referring Provider Family Medicine; Visit Provider Internal Medicine | DX: R07.9 Chest pain, unspecified (principal); I73.9 Peripheral vascular disease, unspecified; I10 Essential (primary) hypertension; R06.09 Other forms of dyspnea; F17.210 Nicotine dependence, cigarettes, uncomplicated; R94.31 Abnormal electrocardiogram [ECG] [EKG] | CPT/HCPCS: 93005; 99204 ==

== ENCOUNTER 2023-09-19 12:52 | Outpatient (CLI) | payer MEDICARE, SELFPAY ==
[2023-09-19] MEDS: iohexol 350 mg/mL 500 mL Btl (per mL) IV (13:05)
[2023-09-19 13:29] LABS: Blood Urea Nitrogen 16 mg/dL (8-23); Glomerular Filtration Rate 66.4 mL/min (90-130)
--- NOTE | 2023-09-19 13:30 | USCV_ITS ---
Ghislaine, Shon Age: 67 Gender: M : 1955 Exam Date: 09/19/2023 13:58 Ordering Phys: Yan Trotter M.D ([email or web address]) Technologist: Rayne Morse Exam Location: [facility] [place] Indication: Chest pain PAD and SOB BP: 164 / 86 HR: 68 Rhythm: Sinus Technical Quality: Adequate MEASUREMENTS (Male / Female) Normal Values 2D ECHO LV Diastolic Diameter PLAX 3.7 cm 4.2 - 5.9 / 3.9 - 5.3 cm LV Systolic Diameter PLAX 2.7 cm LV Chamber Size 2.9 cm IVS Diastolic Thickness 1.4 cm 0.6 - 1.0 / 0.6 - 0.9 cm IVS Systolic Thickness 1.3 cm LVPW Diastolic Thickness 1.6 cm 0.6 - 1.0 / 0.6 - 0.9 cm LVPW Systolic Thickness 1.3 cm RV Chamber Size 2.9 cm LVOT Diameter 3.5 cm LV Ejection Fraction 2D Teich 54.2 % LV Ejection Fraction MOD 2C 70.8 % LV Ejection Fraction 2C AL 72.3 % LA Diameter 3.2 cm LA Width 3.6 cm LA Height 3.8 cm RA Width 3.3 cm RA Height 4.0 cm Aorta at Sinotubular Diameter 3.7 cm IVC Diameter 1.9 cm M-MODE Aortic Annulus Diameter 3.4 cm LA Ao Ratio MM 1.5 MV E Point Septal Separation 0.8 cm DOPPLER AV Peak Velocity 133.0 cm/s LVOT Peak Velocity 117.0 cm/s AV Area Cont Eq vti 10.8 cm squared AV Area Cont Eq pk 8.4 cm squared MV Area PHT 2.2 cm squared Mitral E to A Ratio 0.8 MV E' Velocity 42.5 cm/s Mitral E to MV E' Ratio 5.8 Mitral E to LV E' Lateral Ratio 4.0 Mitral E to LV E' Septal Ratio 10.2 TR Peak Velocity 113.2 cm/s TR Peak Gradient 5.1 mmHg TR Mean Velocity 83.2 cm/s TR Mean Gradient 3.0 mmHg TR Velocity Time Integral 26.1 cm TV Peak E Velocity 73.0 cm/s Right Atrial Pressure 3.0 mmHg Pulmonary Artery Systolic Pressu 8.1 mmHg RV Acceleration Time 0.1 s RV Ejection Time 0.3 s RV AcT/ET 0.4 FINDINGS Left Ventricle Left ventricle is normal in size. LV systolic function is normal with EF 55 to 60%. No regional wall motion abnormalities are seen. Grade 1 diastolic dysfunction Right Ventricle Normal in size and function Right Atrium Normal in size Left Atrium Normal in size Mitral Valve Mild mitral annular calcification is seen. Trace mitral regurgitation Aortic Valve Structurally normal aortic valve. No significant stenosis or regurgitation. Tricuspid Valve Mild tricuspid regurgitation. Insufficient TR jet to calculate RVSP Pulmonic Valve Not well-visualized Pericardium Normal Aorta Mildly dilated aortic root. IVC Appears to be normal CONCLUSIONS LV systolic function is normal with EF of 55 to 60%. Grade 1 diastolic dysfunction. Trace mitral regurgitation. Mild tricuspid regurgitation. Mildly dilated aortic root. No comparison studies are available Yan Trotter MD (Electronically Signed) Final Date: 22 September 2023 12:02 S
--- NOTE | 2023-09-19 14:15 | CTR_ITS ---
PROCEDURE INFORMATION: Exam: CTA Abdominal Aorta and Bilateral Lower Extremities (Run-off) With Contrast Exam date and time: 09/19/2023 1:39 PM Age: 67 years old Clinical indication: Condition or disease; Peripheral vascular disease; Additional info: Pad TECHNIQUE: Imaging protocol: Computed tomographic angiography of the of the abdominal aorta, pelvis and bilateral lower extremities with contrast. 3D rendering (Not supervised by radiologist): MIP and/or 3D reconstructed images were created by the technologist. Radiation optimization: All CT scans at this facility use at least one of these dose optimization techniques: automated exposure control; mA and/or kV adjustment per patient size (includes targeted exams where dose is matched to clinical indication); or iterative reconstruction. Contrast material: OMNI 350; Contrast volume: 100 ml; Contrast route: INTRAVENOUS (IV); REPORTING DATA: Count of CT and Cardiac NM exams in prior 12 months: This patient has received 0 known CTs and 0 known cardiac nuclear medicine studies in the 12 months prior to the current study. COMPARISON: [place] [id number] 08/09/2023 1:23 PM RADIATION DOSE METRICS: Total DLP (mGy-cm): 946.39 FINDINGS: Aorta: There is moderate aortic atherosclerotic disease. There is no aortic dissection or aneurysm. Celiac trunk and mesenteric arteries: Less than 50% stenosis of the celiac artery origin. Less than 50 % stenosis at the superior mesenteric artery origin. Inferior mesenteric artery is patent. Hemodynamically significant stenosis is suspected at the inferior mesenteric artery origin. Renal arteries: Moderate calcific plaque in the right proximal renal artery. Focal high-grade stenosis in the right proximal renal artery. Less than 50% stenosis of the proximal left renal artery. Right iliac arteries: Moderate calcific plaque with less than 50% stenosis in the right common and external iliac arteries. Right internal iliac artery is patent. Right femoral/popliteal arteries: The right common femoral artery demonstrates moderate calcific plaque and less than 50% stenosis. There is occlusion of the right superficial femoral artery from its origin to Eknny's canal. Beyond Kenny's canal the right superficial femoral artery is reconstituted by a well-developed muscular collateral network. There is mild calcific plaque without hemodynamically significant stenosis beyond Kenny's canal in the right superficial femoral artery. There is focal ectasia of the right proximal popliteal artery measuring up to 9 mm. There is mild calcific plaque in the right popliteal artery with less than 50% stenosis. No stenosis in the right profundus femoris artery. Right infrapopliteal arteries: There is moderate calcific plaque at the origin of the right anterior tibial artery. The right anterior tibial artery is patent to the foot. There is multifocal less than 50% stenosis of the right tibioperoneal trunk. The right posterior tibial artery is patent to foot. The right peroneal artery is patent to the ankle. Left iliac arteries: Occlusion of the left common and external iliac arteries. Left internal iliac artery is occluded. There is reconstitution of the left common femoral artery by the enlarged left inferior epigastric artery and collaterals from the left abdominal wall. Left femoral/popliteal arteries: Severe calcific plaque with multifocal less than 50% stenosis in the left common femoral artery. Left profundus femoris artery patent. Severe calcific plaque with high-grade stenosis and near occlusion at the origin of the left superficial femoral artery. Segmental (6 cm) occlusion of the left superficial femoral artery at Kenny's canal. The left distal superficial femoral artery is reconstituted beyond Kenny's canal by a well-developed muscular collateral network. There is mild calcific plaque without significant stenosis in the left popliteal artery. Left infrapopliteal arteries: The left anterior tibial artery is patent to the foot. There is calcific plaque with multifocal 50-60% stenosis in the tibioperoneal trunk. The left posterior tibial artery is patent to the foot. The left peroneal artery is patent to the lower leg. Lungs: Lung bases are clear. Liver: The liver is normal. Gallbladder and bile ducts: The gallbladder is absent. There is no intrahepatic or extrahepatic bile duct dilation. Pancreas: The pancreas is unremarkable. Spleen: The spleen is unremarkable. Adrenal glands: The adrenal glands are unremarkable. Kidneys and ureters: There are simple cysts in both kidneys. There is no hydronephrosis or stones. Stomach and bowel: There is a non-inflamed diverticulum in the proximal duodenum. The stomach is decompressed, preventing meaningful evaluation of wall thickness. The small bowel is nondilated. There is moderate distal descending and sigmoid colonic diverticulosis without evidence of diverticulitis. Appendix: The appendix is normal. Urinary bladder: The urinary bladder is unremarkable. Reproductive: The prostate and seminal vesicles are unremarkable. Intraperitoneal space: There is no free air or significant intraperitoneal free fluid. Lymph nodes: There is no lymphadenopathy in the retroperitoneum, mesentery, pelvis or inguinal regions. Bones/joints: There are chronic bilateral L5 pars defects with grade 2 anterolisthesis of L5 on S1. There is moderate degenerative disease in the lumbar spine. The pelvis and hips are unremarkable. Soft tissues: There is mild asymmetric muscle atrophy in the left lower leg. The abdominal wall is intact. CT/CT angio abd aorta runof [id number] IMPRESSION: 1. Occlusion of the right superficial femoral artery from its origin to Kenny's canal where it is reconstituted by a well-developed collateral network, consistent with chronic occlusion. 2. Patent 2 vessel runoff to the right foot. 3. Occlusion of the left common and external iliac arteries with reconstitution of the left common femoral artery by a well-developed collateral network, consistent with chronic occlusion. 4. Severe calcific plaque with high-grade stenosis and near occlusion at the origin of the left superficial femoral artery. 5. 6 cm segment of occlusion of the left distal superficial femoral artery at Kenny's canal, reconstituted distally by a well-developed collateral network, consistent with chronic occlusion. 6. Patent 2 vessel runoff to the left foot. 7. Short segment high-grade stenosis in the right proximal renal artery. 8. Incidental findings above.
== END 2023-09-19 12:53 | disposition home or self-care (01) ==
LOC: RAD 12:52
PROVIDERS: PCP Family Medicine; Visit Provider Internal Medicine
DX: R07.9 Chest pain, unspecified (principal); R06.02 Shortness of breath; I07.1 Rheumatic tricuspid insufficiency; I77.810 Thoracic aortic ectasia; I70.203 Unspecified atherosclerosis of native arteries of extremities, bilateral legs
CPT/HCPCS: 75635; 82565; 84520; 93306; Q9967

== ENCOUNTER → 2023-11-05 15:34 | Outpatient (BNVA) | payer MEDICARE, SELFPAY | PROVIDERS: PCP Family Medicine; Visit Provider Internal Medicine | DX: I73.9 Peripheral vascular disease, unspecified (principal); I10 Essential (primary) hypertension; R06.09 Other forms of dyspnea; F17.210 Nicotine dependence, cigarettes, uncomplicated; Z79.82 Long term (current) use of aspirin | CPT/HCPCS: 99214 ==

== ENCOUNTER → 2024-03-03 12:24 | Outpatient (BNVA) | payer MEDICARE, SELFPAY | PROVIDERS: PCP Family Medicine; Visit Provider Internal Medicine | DX: I73.9 Peripheral vascular disease, unspecified (principal); I10 Essential (primary) hypertension; R06.09 Other forms of dyspnea; F17.210 Nicotine dependence, cigarettes, uncomplicated | CPT/HCPCS: 99214 ==

== ENCOUNTER → 2024-04-07 12:31 | Outpatient (BNVA) | payer MEDICARE, SELFPAY | PROVIDERS: PCP Family Medicine; Visit Provider Family Medicine | DX: I10 Essential (primary) hypertension (principal); R35.1 Nocturia | CPT/HCPCS: 80053; 80061; 82043; 84153; 85025 ==

== ENCOUNTER 2024-05-07 12:42 | Emergency (ER) | payer MEDICARE, SELFPAY ==
[2024-05-07 12:45] VITALS: BP 116/70; PULSE 61; RESP 18; TEMP 36.8; O2SAT 94; BMI 28.8
[2024-05-07 13:18] VITALS: BP 116/70; PULSE 61; RESP 18; TEMP 36.8; O2SAT 94
[2024-05-07 13:21] LABS: Basophils % 0.5 %; Eosinophils # 0.2 10^3/uL (0.0-0.8); Eosinophils % 1.7 %; Hematocrit 48.9 % (37-53); Lymphocytes # 2.2 10^3/uL (0.8-4.8); Lymphocytes % 25.4 %; Mean Corpuscular HGB Conc 34.6 g/dL (30-55); Mean Corpuscular Volume 92.6 fl (82-101); Mean Platelet Volume 10.3 fL (7.4-10.4); Monocytes # 0.6 10^3/uL (0.2-0.9); Monocytes % 6.9 %; Neutrophils # 5.74 10^3/uL (1.8-7.7); Neutrophils % 65.2 %; Nucleated Red Blood Cells % 0 %; Platelet Count 213 10^3/cmm (157-399); Red Blood Count 5.28 10^6/uL (3.85-5.65); Red Cell Distribution Width 13.8 % (12.1-15.1); White Blood Count 8.81 10^3/uL (3.29-11.43)
--- NOTE | 2024-05-07 13:42 | W.ED.PSYCHS ---
HPI - Psych General: Chief Complaint: Psychiatric Symptoms Stated Complaint: si Time Seen by Provider: 05/07/24 12:51 Source: patient Mode of arrival: EMS History of Present Illness: 68-year-old male presents to the emergency room with complaints of suicidal ideation. Patient states he has not felt good for the last year. , Patient relates that 2 to 3 years ago was hospitalized for mental illness suicidal ideation in [place]. He is continually having thoughts of hurting himself today he was at a counselor's office and Perry disclosed this to the counselor EMS was called to transfer the patient here for suicidal ideation. Patient is on anticoagulants. He states at times he is very confused has difficult time concentrating no recent trauma or fall MD complaint: suicidal ideation and feels depressed Relieving factors: none Exacerbating factors: none [facility] ED PFSH: Medical History Psychiatric care Mild cognitive impairment Major depressive disorder OCD (obsessive compulsive disorder) MYRTLE (generalized anxiety disorder) Surgical History History of cholecystectomy Family History Other Alcohol abuse Social History Smoking and tobacco/nicotine status: never used tobacco/nicotine Quit status (tobacco/nicotine): considering quitting Second hand smoke exposure: No Alcohol intake: former Former alcohol use details: QUIT 2019 Substance/Drug Use: never Current gender identity: Male Course Vital Signs: Vital signs: Vital Signs Temperature 98.2 F 05/07/24 13:18 Pulse Rate 65 05/07/24 18:40 Respiratory Rate 16 05/07/24 18:40 Blood Pressure 122/77 05/07/24 18:40 Pulse Oximetry 92 05/07/24 18:40 Oxygen Delivery Me thod Room Air 05/07/24 18:40 MDM - Psych Medical Decision Making Depression with suicidal ideation. Patient is agreeable for voluntary admission will transfer to [facility] to the geriatric psychiatry unit. Arrangements made for [facility]. Patient has had some episodes of anxiety requiring Ativan but otherwise has been well-behaved and has not been any issues. Medical Records I reviewed the patient's medical records. Lab Data I reviewed the patient's lab results. 05/07/24 13:01 05/07/24 13:01 Radiology Impressions Chest X-Ray 05/07/24 13:53 IMPRESSION: No acute findings. Head CT 05/07/24 13:53 IMPRESSION: 1. No evidence of intracranial hemorrhage or mass effect. 2. No acute intracranial findings. Laboratory Results WBC 8.81 10^3/uL (3.29-11.43) 05/07/24 13:01 RBC 5.28 10^6/uL (3.85-5.65) 05/07/24 13:01 Hgb 16.90 g/dL (11.27-16.99) 05/07/24 13:01 Hct 48.9 % (37-53) 05/07/24 13:01 MCV 92.6 fl (82-101) 05/07/24 13:01 MCH 32.0 pg (27-33) 05/07/24 13: MCHC 34.6 g/dL (30-55) 05/07/24 13:01 RDW 13.8 % (12.1-15.1) 05/07/24 13: Plt Count 213 10^3/cmm (157-399) 05/07/24 13:01 MPV 10.3 fL (7.4-10.4) 05/07/24 13:01 Neut % (Auto) 65.2 % 05/07/24 13:01 Lymph % (Auto) 25.4 % 05/07/24 13:01 Ellis % (Auto) 6.9 % 05/07/24 13:01 Eos % (Auto) 1.7 % 05/07/24 13:01 Baso % (Auto) 0.5 % 05/07/24 13:01 Neut # (Auto) 5.74 10^3/uL (1.8-7.7) 05/07/24 13:01 Lymph # (Auto) 2.2 10^3/uL (0.8-4.8) 05/07/24 13:01 Ellis # (Auto) 0.6 10^3/uL (0.2-0.9) 05/07/24 13:01 Eos # (Auto) 0.2 10^3/uL (0.0-0.8) 05/07/24 13:01 Baso # (Auto) 0.0 10^3/uL (0.0-0.1) 05/07/24 13:01 Nucleated RBC % (auto) 0 % 05/07/24 13:01 Nucleated RBCs # 0.0 /100WBC 05/07/24 13:01 Sodium 140 mmol/L (136-145) 05/07/24 13:01 Potassium 4.6 mmol/L (3.5-5.1) 05/07/24 13:01 Chloride 104 mmol/L (98-107) 05/07/24 13:01 Carbon Dioxide 26 mmol/L (22-29) 05/07/24 13:01 Anion Gap 14.6 (5-19) 05/07/24 13:01 BUN 13 mg/dL (8-23) 05/07/24 13:01 Creatinine 1.1 mg/dL (0.7-1.2) 05/07/24 13:01 GFR Calculation 66.2 mL/min (90-130) L 05/07/24 13:01 Glucose 85 mg/dL (65-115) 05/07/24 13:01 Calculated Osmolality 289 mOsm/kg (285-295) 05/07/24 13:01 Calcium 9.1 mg/dL (8.5-10.5) 05/07/24 13:01 Total Bilirubin 0.6 mg/dL (0.15-1.2) 05/07/24 13:01 AST 11 U/L (0-40) 05/07/24 13:01 ALT 16 U/L (0-41) 05/07/24 13:01 Alkaline Phosphatase 71 U/L (40-130) 05/07/24 13:01 Total Protein 6.5 g/dL (6.6-8.7) L 05/07/24 13:01 Albumin 4.0 g/dL (3.5-5.2) 05/07/24 13:01 Globulin 2.5 g/dL (1.3-4.6) 05/07/24 13:01 Lipase 13 U/L (13-60) 05/07/24 13:01 Urine Color Yellow (Yellow) 05/07/24 12:16 Urine Appearance Clear (CLEAR) 05/07/24 12:16 Urine pH 6 (5-7) 05/07/24 12:16 Ur Specific Devers 1.025 (1.005-1.030) 05/07/24 12:16 Urine Protein Neg (Negative) 05/07/24 12:16 Urine Glucose (UA) Norm (Normal) 05/07/24 12:16 Urine Ketones Negative (Negative) 05/07/24 12:16 Urine Blood Neg (Negative) 05/07/24 12:16 Urine Nitrate Negative (Negative) 05/07/24 12:16 Urine Bilirubin Neg (Negative) 05/07/24 12:16 Urine Urobilinogen Norm mg/dL (Negative) 05/07/24 12:16 Ur Leukocyte Esterase Negative (Negative) 05/07/24 12:16 Salicylates 0.7 mg/dL (3-10) L 05/07/24 13:01 Urine Opiates Screen Negative ng/mL (Negative) 05/07/24 12:16 Acetaminophen < 5.0 ug/mL (10-30) L 05/07/24 13:01 Ur Barbiturates Screen Negative ng/mL (Negative) 05/07/24 12:16 Ur Phencyclidine Scrn Negative ng/mL (Negative) 05/07/24 12:16 Ur Amphetamines Screen Negative ng/mL (Negative) 05/07/24 12:16 U Benzodiazepines Scrn Positive ng/mL (Negative) H 05/07/24 12:16 Urine Cocaine Screen Negative ng/mL (Negative) 05/07/24 12:16 U Marijuana (THC) Screen Negative ng/mL (Negative) 05/07/24 12:16 All radiology interpretation(s) finalized by discharge Discharge Plan Discharge Patient Disposition: Xfer Psychiatric Hosp Clinical Impression: Suicidal ideation, Depression Condition: Stable Prescriptions: No Action mupirocin 2 % ointment 1 applic topical TID 10 Days Qty: 22 0RF Rx Instructions: apply to arm and neck cilostazol 100 mg tablet 100 mg PO BID Qty: 180 3RF alprazolam 1 mg tablet 1 mg PO TID PRN (Reason: anxiety) 30 Days Qty: 90 3RF lisinopril 10 mg tablet 10 mg PO QAM Referrals: Megan Tomas DO [Primary Care Provider] - Coding Level of Care Code ED [facility] for [facility]
[2024-05-07 13:43] LABS: Alanine Aminotransferase 16 U/L (0-41); Alkaline Phosphatase 71 U/L (40-130); Anion Gap 14.6 (5-19); Aspartate Amino Transferase 11 U/L (0-40); Blood Urea Nitrogen 13 mg/dL (8-23); Calcium 9.1 mg/dL (8.5-10.5); Carbon Dioxide 26 mmol/L (22-29); Chloride 104 mmol/L (98-107); Globulin 2.5 g/dL (1.3-4.6); Glomerular Filtration Rate 66.2 mL/min (90-130); Glucose 85 mg/dL (65-115); Lipase 13 U/L (13-60); Osmolality Calculated 289 mOsm/kg (285-295); Potassium 4.6 mmol/L (3.5-5.1); Salicylate 0.7 mg/dL (3-10); Sodium 140 mmol/L (136-145); Total Bilirubin 0.6 mg/dL (0.15-1.2); Total Protein 6.5 g/dL (6.6-8.7)
[2024-05-07 13:46] LABS: Acetaminophen < 5.0 ug/mL (10-30)
--- NOTE | 2024-05-07 13:53 | CT_ITS ---
WS: [id number] CT HEAD TECHNIQUE: Noncontrast CT of the head obtained from the skullbase to the vertex. CLINICAL INFORMATION: Confusion, chronic anticoagulant COMPARISON: CT 2020 DLP: 1138.[address] scans at [facility] use at least one of these dose optimization techniques: automated e xposure control; mA and/or kV adjustment per patient size (includes targeted exams where dose is matc hed to clinical indication); or iterative reconstruction. FINDINGS: No evidence of intracranial hemorrhage or mass effect. Ventricular system and basal cisterns are padilla nt. Moderate small vessel changes with moderate parenchymal volume loss. 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 This is unchanged from previous. Vascular calci fication. Paranasal sinuses and mastoid air cells are well aerated. CT/CT head wo con* [id number] IMPRESSION: 1. No evidence of intracranial hemorrhage or mass effect. 2. No acute intracranial findings.
--- NOTE | 2024-05-07 13:53 | XRR_ITS ---
PROCEDURE INFORMATION: Exam: XR Chest Exam date and time: 05/07/2024 2:12 PM Age: 68 years old Clinical indication: Patient HX: Si, confusion; Additional info: Screening TECHNIQUE: Imaging protocol: Radiologic exam of the chest. Views: 1 view. COMPARISON: CT angio abd aorta runof [id number] 09/19/2023 1:39 PM FINDINGS: Airway: Patent Lungs: Unremarkable. No consolidation. Pleural spaces: Unremarkable. No pleural effusion. No pneumothorax. Heart/Mediastinum: Unremarkable. No cardiomegaly. Vasculature: Calcified aortic knob. Bones/joints: No acute skeletal abnormality or aggressive osseous lesion. XR/XR chest 1V portable [id number] IMPRESSION: No acute findings.
[2024-05-07 14:30] LABS: Add Urine Microscopic? NO; Charge for UA Resulting for Rev
[2024-05-07 14:53] LABS: Amphetamines Screen Urine Negative (Negative); Barbiturates Screen Urine Negative (Negative); Benzodiazepines Screen Urine Positive (Negative); Cocaine Screen Urine Negative (Negative); Opiate Screen Urine Negative (Negative); PCP Screen Urine Negative (Negative); THC Screen Urine Negative (Negative)
[2024-05-07 14:58] LABS: Bilirubin Urine Neg (Negative); Blood Urine Neg (Negative); Glucose Urine UA Norm (Normal); Ketones Urine Negative (Negative); Leukocyte Esterase Urine Negative (Negative); Nitrate Urine Negative (Negative); Protein Urine Neg (Negative); Specific Gravity, Urine 1.025 (1.005-1.030); Urine Appearance Clear (CLEAR); Urine Color Yellow (Yellow); Urobilinogen Urine Norm (Negative); pH Urine 6 (5-7)
--- NOTE | 2024-05-07 16:31 | ECG_ITS ---
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 Measurements Intervals Todd Rate: 59 P: 57 ID: [id number] QRS: -11 QRSD: 96 T: 58 QT: 386 QTc: 385 Interpretive Statements SINUS BRADYCARDIA Compared to ECG 09/02/2023 13:29:55 Sinus rhythm no longer present Indeterminate axis no longer present Myocardial infarct finding no longer present Electronically Signed On 05-07-2024 22:04:21 CDT by Tia Jaeger M.D. [email or web address]
[2024-05-07] MEDS: LORazepam 2 mg Tablet PO (16:53)
[2024-05-07 18:40] VITALS: BP 122/77; PULSE 65; RESP 16; O2SAT 92
[2024-05-08] MEDS: LORazepam 2 mg Tablet PO (00:43)
[2024-05-08 06:41] VITALS: BP 144/76; PULSE 62; RESP 16; O2SAT 95
--- NOTE | 2024-05-08 07:24 | DCPLANNER ---
Maribel spoke to Mar @1510. Faxed referral at 1515, accepted at 1625. Spoke to Candelario @1624 [place]. Faxed @1625. @1700 needed ekg & voluntary paper filled out. Accepted at 1735. gave 30 min eta at 1840.
[2024-05-08 08:47] VITALS: BP 144/76; PULSE 62; RESP 16; TEMP 36.8; O2SAT 95
== END 2024-05-08 08:49 ==
PROVIDERS: Emergency Provider Family Medicine; PCP Family Medicine
DX: R45.851 Suicidal ideations (principal); F32.A Depression, unspecified
CPT/HCPCS: 36415; 70450; 71045; 80053; 80306; 80307; 81003; 83690; 85025; 93005; 99285

== ENCOUNTER → 2024-09-08 13:51 | Outpatient (BNVA) | payer MEDICARE, SELFPAY | PROVIDERS: PCP Family Medicine; Visit Provider Internal Medicine | DX: I73.9 Peripheral vascular disease, unspecified (principal); I10 Essential (primary) hypertension; R06.09 Other forms of dyspnea; Z87.891 Personal history of nicotine dependence | CPT/HCPCS: 99214 ==

== ENCOUNTER → 2025-03-17 14:46 | Outpatient (BNVA) | payer MEDICARE, SELFPAY | PROVIDERS: PCP Family Medicine Adult Medicine; Visit Provider Internal Medicine | DX: I73.9 Peripheral vascular disease, unspecified (principal); I10 Essential (primary) hypertension; R06.09 Other forms of dyspnea; Z87.891 Personal history of nicotine dependence | CPT/HCPCS: 99214 ==

== ENCOUNTER → 2025-05-31 13:11 | Outpatient (BNVA) | payer MEDICARE, SELFPAY | PROVIDERS: PCP Family Medicine Adult Medicine; Visit Provider Podiatrist Foot & Ankle Surgery | DX: L60.3 Nail dystrophy (principal); G57.62 Lesion of plantar nerve, left lower limb | CPT/HCPCS: 73630; 99204 ==

== ENCOUNTER 2025-10-05 13:54 | Outpatient (CLI) | payer MEDICARE, SELFPAY ==
--- NOTE | 2025-10-05 14:15 | USCV_ITS ---
Ghislaine, Shon Age: 70 Gender: M : 1955 Exam Date: 10/05/2025 14:26 Ordering Phys: Yan Trotter M.D ([email or web address]) Technologist: Exam Location: [facility] Indication: cp sob BP: 123 / 74 HR: 52 Rhythm: Sinus Technical Quality: Adequate MEASUREMENTS (Male / Female) Normal Values 2D ECHO LV Diastolic Diameter PLAX 5.2 cm 4.2 - 5.9 / 3.9 - 5.3 cm IVS Diastolic Thickness 1.7 cm 0.6 - 1.0 / 0.6 - 0.9 cm IVS Systolic Thickness 1.9 cm LVPW Diastolic Thickness 1.4 cm 0.6 - 1.0 / 0.6 - 0.9 cm LVPW Systolic Thickness 1.9 cm LVOT Diameter 2.4 cm LV Ejection Fraction 2D Teich 67.2 % LV Ejection Fraction MOD 4C 71.5 % LV Ejection Fraction MOD 2C 68.1 % LV Ejection Fraction 2C AL 69.6 % LA Diameter 5.0 cm RA Systolic Volume 4C AL 53.0 ml RA Systolic Volume 4C MOD 51.9 ml Aorta at Sinotubular Diameter 2.9 cm DOPPLER AV Peak Velocity 119.0 cm/s LVOT Peak Velocity 69.0 cm/s AV Area Cont Eq vti 3.4 cm squared AV Area Cont Eq pk 2.6 cm squared MV Peak Velocity 99.0 cm/s MV Area PHT 3.2 cm squared Mitral E to A Ratio 0.7 TR Peak Velocity 266.0 cm/s TR Peak Gradient 28.3 mmHg TV Peak E Velocity 90.0 cm/s PV Peak Velocity 120.0 cm/s FINDINGS Left Ventricle Normal left ventricular size and systolic function, EF 60-65%. No regional wall motion abnormalities. Grade 1 diastolic dysfunction Right Ventricle Normal in size and function Right Atrium Normal in size Left Atrium Normal in size IA Septum Grossly normal Mitral Valve Mild mitral annular calcification. Trace mitral regurgitation Aortic Valve Structurally normal aortic valve. No significant stenosis or regurgitation. Tricuspid Valve Mild tricuspid regurgitation. Insufficient TR jet to calculate RVSP Pulmonic Valve Not well visualized Pericardium Normal Aorta Normal in size IVC Not well visualized CONCLUSIONS LV systolic function is normal with EF of 60-65% Grade 1 diastolic dysfunction Trace mitral regurgitation Mild tricuspid regurgitation. Yan Trotter MD (Electronically Signed) Final Date: 10 October 2025 10:44 S
== END 2025-10-05 13:55 | disposition home or self-care (01) ==
LOC: RAD 13:55
PROVIDERS: PCP Family Medicine Adult Medicine; Visit Provider Internal Medicine
DX: R06.09 Other forms of dyspnea (principal); R07.9 Chest pain, unspecified; I51.89 Other ill-defined heart diseases; I36.1 Nonrheumatic tricuspid (valve) insufficiency; I34.0 Nonrheumatic mitral (valve) insufficiency
CPT/HCPCS: 93306

== ENCOUNTER 2025-10-27 11:58 | Outpatient (CLI) | payer MEDICARE, SELFPAY ==
--- NOTE | 2025-10-27 12:09 | CT_ITS ---
WS: [id number] LDCT LUNG CANCER SCREENING TECHNIQUE: Noncontrast CT of the chest with coronal and sagittal reformatted images. CLINICAL INFORMATION: HX OF TOBACCO USE COMPARISON: None. DLP: 118.21 mGy.cm DIvol: Mean CTDIvol: 2.60 (mGy) All CT scans at [facility] use at least one of these dose optimization techniques: automated exposure control; mA and/or kV adjustment per patient size (includes targeted exams where dose is matched to clinical indication); or iterative reconstruction. FINDINGS: Azygous fissure. No suspicious pulmonary parenchymal abnormalities. Tiny micronodule LEFT upper lobe. A few tiny calcified granulomas. Subsegmental atelectasis in the lung bases. Aortic calcification. Coronary calcification. No mediastinal or hilar lymphadenopathy. No axillary lymphadenopathy. Adrenal glands are normal. Fatty atrophy of the pancreas. Splenic artery calcification. Mild thoracic curve. Mild thoracic kyphosis. Chronic anterior wedging in the mid and lower thoracic spine. CT/CT lung screening [id number] IMPRESSION: LUNG-RADS: 2-Benign Appearance or Behavior FOLLOW UP: 12 Month: Continue annual screening with LDCT
== END 2025-10-27 11:59 | disposition home or self-care (01) ==
LOC: RAD 12:03
PROVIDERS: PCP Nurse Practitioner Family; Visit Provider Nurse Practitioner Family
DX: Z12.2 Encounter for screening for malignant neoplasm of respiratory organs (principal); Z87.891 Personal history of nicotine dependence; I25.10 Atherosclerotic heart disease of native coronary artery without angina pectoris; I35.8 Other nonrheumatic aortic valve disorders; K86.89 Other specified diseases of pancreas; D73.89 Other diseases of spleen; M40.204 Unspecified kyphosis, thoracic region; M48.54XS Collapsed vertebra, not elsewhere classified, thoracic region, sequela of fracture; X58.XXXS Exposure to other specified factors, sequela
CPT/HCPCS: 71271

== ENCOUNTER → 2025-11-17 10:34 | Outpatient (BNVA) | payer MEDICARE, SELFPAY | PROVIDERS: PCP Nurse Practitioner Family; Visit Provider Internal Medicine | DX: I73.9 Peripheral vascular disease, unspecified (principal); I10 Essential (primary) hypertension | CPT/HCPCS: 99213 ==